=== PATIENT | female | born 1995 | race Caucasian/White ===

== ENCOUNTER → 2018-08-21 | Outpatient (CLI) | payer OTHER ==
[~2018-08-21] MED LIST: CLAR1TAB2 PO; CLEO300C2 PO; IBUP-1022 PO
== END ==
LOC: M SMT 13:05
PROVIDERS: ATTEND Advanced Practice Midwife
DX: Z31.438 Encounter for other genetic testing of female for procreative management (principal)

== ENCOUNTER → 2018-08-26 | Outpatient (CLI) | payer BC, OTHER ==
[2018-08-26 13:34] LABS: BASO % 0.5 % (0.0-1.0); EOS # 0.1 10^3/uL (0.0-0.50); EOS % 1.3 % (0.0-3.0); HEMATOCRIT 38.1 % (36.0-47.0); HEMOGLOBIN 12.4 g/dl (12.0-15.5); LYMPH # 2.7 10^3/uL (1.5-6.5); LYMPH % 31.8 % (24.0-44.0); MEAN CORPUSCULAR HEMOGLOBIN 26.5 pg (27.0-33.0); MEAN CORPUSCULAR HGB CONC 32.5 g/dl (32.0-36.5); MEAN CORPUSCULAR VOLUME 81.4 fl (80.0-96.0); MONO # 0.9 10^3/uL (0.0-0.8); MONO % 10.5 % (0.0-5.0); NEUTROPHILS # 4.7 10^3/uL (1.8-7.7); NEUTROPHILS % 55.7 % (36.0-66.0); PLATELET COUNT, AUTOMATED 265 10^3/uL (150-450); RED BLOOD COUNT 4.68 10^6/uL (4.00-5.40); WHITE BLOOD COUNT 8.5 10^3/uL (4.0-10.0)
[2018-08-26 14:30] LABS: HEPATITIS C VIRUS ABY INDEX < 0.0 INDEX (<0.8); HIV 1&2 SCREEN CENTAUR NEGATIVE (NEGATIVE); RUBELLA IgG QUALITATIVE IMMUNE (IMMUNE)
[2018-08-26 16:01] LABS: CHLAMYDIA DNA AMPLIFICATION NEGATIVE (NEGATIVE); GC DNA AMPLIFICATION NEGATIVE (NEGATIVE)
== END ==
LOC: M SMT 11:08
PROVIDERS: ATTEND Advanced Practice Midwife
DX: Z34.81 Encounter for supervision of other normal pregnancy, first trimester (principal)

== ENCOUNTER → 2018-09-09 | Outpatient (REF) | payer BC, OTHER | LOC: M LAB REF 09:56 | PROVIDERS: ATTEND Advanced Practice Midwife | DX: Z34.01 Encounter for supervision of normal first pregnancy, first trimester (principal); Z3A.00 Weeks of gestation of pregnancy not specified ==

== ENCOUNTER → 2018-09-29 | Outpatient (REF) | payer BC, OTHER | LOC: M LAB REF 12:51 | PROVIDERS: ATTEND Physician Assistant | DX: J02.9 Acute pharyngitis, unspecified (principal) ==

== ENCOUNTER → 2018-10-01 | Outpatient (CLI) | payer BC, OTHER ==
[2018-10-01 13:40] LABS: FREE T4 0.95 NG/DL (0.76-1.46); THYROID STIMULATING HORMONE 2.48 uIU/ML (0.358-3.740)
== END ==
LOC: M SMT 08:01
PROVIDERS: ATTEND Advanced Practice Midwife
DX: Z34.82 Encounter for supervision of other normal pregnancy, second trimester (principal); Z3A.00 Weeks of gestation of pregnancy not specified

== ENCOUNTER → 2018-10-15 | Outpatient (CLI) | payer OTHER ==
--- NOTE | 2018-10-15 11:21 | REP ---
Obstetric sonography: History: Supervision of for anatomy. Findings: Scanning through the gravid uterus demonstrates a viable single intrauterine gestation in a breech lie. motion is observed and heart rate is recorded at 146 beats per minute. An anterior grade 1 placenta is seen without evidence of previa or abruption. Amniotic fluid is subjectively normal. Closed cervical length is 5.5 cm, viewed transabdominally. No extrauterine abnormalities observed. No anomaly is seen. Four-chamber heart, outflow tract, and kidney visualizations are less than optimal due to position. The following additional anatomic structures are identified and felt to be sonographically unremarkable: cranium, choroid plexus, cavum, cerebellum and posterior fossa, face and profile, lungs, diaphragm, left-sided stomach, abdominal wall cord insertion, three-vessel cord, urinary bladder, spine, upper and lower extremities. Biometry chart: BPD 4.1 cm = 18 weeks 3 days Head circumference 14.8 cm = 17 weeks 6 days Abdominal circumference 13.2 cm = 18 weeks 5 days Femur length 2.9 cm = 18 weeks 6 days Humeral length 2.7 cm = 18 weeks 4 days Cerebellar diameter 1.8 cm = 17 weeks 6 days HC/AC ratio normal 1.12. Cephalic index normal 0.78. Estimated weight 253 grams, 0 pounds 8 ounces, 57th percentile for 18 weeks 3 days. Impression: Viable single intrauterine gestation at 18 weeks 3 days by today's composite sonographic criteria. ERICA by today's sonography March 15, 2019. anatomic survey is less than complete regarding heart and kidneys. Electronically Signed by Alex Echeverria MD 10/15/2018 12:30 P
== END ==
LOC: M RAD 09:31
PROVIDERS: ATTEND Advanced Practice Midwife
DX: Z34.82 Encounter for supervision of other normal pregnancy, second trimester (principal); Z3A.18 18 weeks gestation of pregnancy

== ENCOUNTER 2018-11-09 17:11 | Emergency (ER) | payer BC, OTHER ==
[~2018-11-09] VITALS: Ht 160 cm; Wt 90.0 kg
[2018-11-09] MEDS ORDERED: MULTTAB20 PO (19:54)
[2018-11-09] MEDS ORDERED: MAGN400C PO (19:54)
[2018-11-09] MEDS ORDERED: BENA25CA4 PO (19:54)
[2018-11-09] MEDS ORDERED: CLEO300C2 PO (20:05)
[2018-11-09 20:16] VITALS: BP 116/73
== END 2018-11-09 20:25 | disposition home or self-care (01) ==
LOC: M ED 17:11
DX: O99.89 Other specified diseases and conditions complicating pregnancy, childbirth and the puerperium (principal); T78.49XA Other allergy, initial encounter; Y92.9 Unspecified place or not applicable; Y93.9 Activity, unspecified; Z3A.22 22 weeks gestation of pregnancy; Z79.899 Other long term (current) drug therapy; Z88.0 Allergy status to penicillin

== ENCOUNTER → 2018-11-17 | Outpatient (CLI) | payer BC ==
[~2018-11-17] MED LIST changes: +BENA25CA4 PO; +MAGN400C PO; +MULTTAB20 PO
--- NOTE | 2018-11-17 15:12 | REP ---
Clinical: Anatomical evaluation. Comparison: 10/15/2018 . Findings: Examination demonstrates a single live intrauterine in breech presentation. motion is identified by technologist. Placenta is noted anterior and grade grade zero without evidence for placenta previa or abruption. Amniotic fluid volume is normal. Cervix measures 5.1 cm in length and appears closed. No evidence for nuchal cord. Gestational age by LMP 22 weeks 4 days with ERICA 03/19/2019 . Gestational age by current measurements 23 weeks 4 days with ERICA 03/12/2019 . FHR equals 165 beats per minute. Estimated weight 605 grams ( 76th percentile). Anatomical assessment demonstrates normal structures including cranium, choroid plexus, cavum, cerebellum/posterior fossa, facial features, lungs, four-chamber heart/ventricular outflow tracts, diaphragm, stomach, cord insertion/three-vessel cord, kidneys/bladder, spine, and extremities. Impression: Single live intrauterine in breech presentation demonstrating appropriate interval growth. Anatomical assessment is complete and normal. No gross abnormalities are identified. Electronically Signed by Agapito Bradley MD 11/17/2018 03:03 P
== END ==
LOC: M RAD 13:33
PROVIDERS: ATTEND Obstetrics & Gynecology
DX: O99.89 Other specified diseases and conditions complicating pregnancy, childbirth and the puerperium (principal); Z3A.22 22 weeks gestation of pregnancy; O32.1XX0 Maternal care for breech presentation, not applicable or unspecified

== ENCOUNTER 2018-11-27 14:36 | Emergency (ER) | payer BC, OTHER ==
[~2018-11-27] VITALS: Ht 162.6 cm; Wt 93.3 kg
[2018-11-27 14:36] VITALS: BP 128/72
[2018-11-27] MEDS ORDERED: CLIN150C14 PO (16:18)
[2018-11-27] MEDS ORDERED: CLINDAMYCIN 150 MG CAP PO ONE (16:30)
== END 2018-11-27 16:44 | disposition home or self-care (01) ==
LOC: M ED 14:36
DX: O99.89 Other specified diseases and conditions complicating pregnancy, childbirth and the puerperium (principal); L03.114 Cellulitis of left upper limb; Z88.0 Allergy status to penicillin; Z3A.24 24 weeks gestation of pregnancy

== ENCOUNTER → 2018-12-11 | Outpatient (CLI) | payer BC, OTHER ==
[~2018-12-11] MED LIST changes: +CLIN150C14 PO
[2018-12-11 13:43] LABS: BASO % 0.3 % (0.0-1.0); EOS # 0.1 10^3/uL (0.0-0.50); EOS % 1.2 % (0.0-3.0); HEMATOCRIT 30.7 % (36.0-47.0); HEMOGLOBIN 10.1 g/dl (12.0-15.5); LYMPH # 2.1 10^3/uL (1.5-6.5); MEAN CORPUSCULAR HEMOGLOBIN 28.7 pg (27.0-33.0); MEAN CORPUSCULAR HGB CONC 32.9 g/dl (32.0-36.5); MEAN CORPUSCULAR VOLUME 87.2 fl (80.0-96.0); MONO % 9.1 % (0.0-5.0); NEUTROPHILS # 8.1 10^3/uL (1.8-7.7); NEUTROPHILS % 70.7 % (36.0-66.0); PLATELET COUNT, AUTOMATED 252 10^3/uL (150-450); RED BLOOD COUNT 3.52 10^6/uL (4.00-5.40); WHITE BLOOD COUNT 11.4 10^3/uL (4.0-10.0)
== END ==
LOC: M SMT 09:00
PROVIDERS: ATTEND Advanced Practice Midwife
DX: Z34.02 Encounter for supervision of normal first pregnancy, second trimester (principal); Z3A.00 Weeks of gestation of pregnancy not specified

== ENCOUNTER 2019-01-05 15:28 | Outpatient (CLI) | payer BC, OTHER ==
[~2019-01-05] VITALS: Ht 157.5 cm; Wt 95.4 kg
[2019-01-05 15:44] VITALS: BP 126/71
[2019-01-05] MEDS ORDERED: FERR325T88 PO (15:59)
== END 2019-01-05 17:18 | disposition home or self-care (01) ==
LOC: M LDO 15:28
PROVIDERS: ATTEND Specialist
DX: O99.89 Other specified diseases and conditions complicating pregnancy, childbirth and the puerperium (principal); R07.9 Chest pain, unspecified; R06.00 Dyspnea, unspecified; Z3A.29 29 weeks gestation of pregnancy
CPT/HCPCS: G0378; G0463

== ENCOUNTER → 2019-01-13 | Outpatient (CLI) | payer BC, OTHER ==
[~2019-01-13] MED LIST changes: +FERR325T88 PO
[2019-01-13 12:19] LABS: HEMATOCRIT 31.7 % (36.0-47.0); HEMOGLOBIN 10.3 g/dl (12.0-15.5); MEAN CORPUSCULAR HEMOGLOBIN 27.3 pg (27.0-33.0); MEAN CORPUSCULAR HGB CONC 32.5 g/dl (32.0-36.5); MEAN CORPUSCULAR VOLUME 84.1 fl (80.0-96.0); PLATELET COUNT, AUTOMATED 248 10^3/uL (150-450); RED BLOOD COUNT 3.77 10^6/uL (4.00-5.40); WHITE BLOOD COUNT 9.9 10^3/uL (4.0-10.0)
[2019-01-13 12:22] LABS: ALT/SGPT 20 U/L (12-78); BILIRUBIN,TOTAL 0.2 MG/DL (0.2-1.0); CREATININE FOR GFR 0.52 MG/DL (0.55-1.30); GLOMERULAR FILTRATION RATE > 60.0 (>60); LDH LACTATE DEHYDROGENASE 120 U/L (84-246); URIC ACID 3.1 MG/DL (2.6-6.0)
[2019-01-13 13:03] LABS: TOTAL PROTEIN,RANDOM URINE 31.1 MG/DL (0.0-12.0)
== END ==
LOC: M SMT 08:49
PROVIDERS: ATTEND Advanced Practice Midwife
DX: R51 Headache (principal); R10.30 Lower abdominal pain, unspecified

== ENCOUNTER 2019-01-25 09:13 | Outpatient (CLI) | payer BC, OTHER ==
[~2019-01-25] VITALS: Ht 160 cm; Wt 94.2 kg
[2019-01-25 09:38] VITALS: BP 120/74
[2019-01-25 10:31] LABS: APPEARANCE, URINE CLEAR (CLEAR); BACTERIA, URINE AUTO 1+ (NEGATIVE); BILIRUBIN, URINE AUTO NEGATIVE (NEGATIVE); BLOOD, URINE BLOOD NEGATIVE (NEGATIVE); COLOR, URINE YELLOW (YELLOW); GLUCOSE, URINE (UA) AUTO NEGATIVE (NEGATIVE); KETONE, URINE AUTO NEGATIVE (NEGATIVE); LEUKOCYTE ESTERASE, URINE AUTO NEGATIVE (NEGATIVE); MUCUS, URINE SMALL (NEGATIVE); NITRITE, URINE AUTO NEGATIVE (NEGATIVE); PROTEIN, URINE AUTO NEGATIVE (NEGATIVE); RBC, URINE AUTO 2 /HPF (0-3); SPECIFIC GRAVITY URINE AUTO 1.013 (1.002-1.035); SQUAMOUS EPITHELIAL CELL UR AU 6 /HPF (0-6); UROBILINOGEN, URINE AUTO 0.2 mg/dL (0.0-2.0); WBC, URINE AUTO 2 /HPF (0-3)
[2019-01-25 11:05] LABS: HEMATOCRIT 32.9 % (36.0-47.0); HEMOGLOBIN 10.8 g/dl (12.0-15.5); MEAN CORPUSCULAR HEMOGLOBIN 28.1 pg (27.0-33.0); MEAN CORPUSCULAR HGB CONC 32.8 g/dl (32.0-36.5); MEAN CORPUSCULAR VOLUME 85.5 fl (80.0-96.0); PLATELET COUNT, AUTOMATED 226 10^3/uL (150-450); RED BLOOD COUNT 3.85 10^6/uL (4.00-5.40); WHITE BLOOD COUNT 9.9 10^3/uL (4.0-10.0)
[2019-01-25 11:16] LABS: INR 0.96; PROTHROMBIN TIME 12.5 SECONDS (11.8-14.0)
[2019-01-25 11:17] LABS: PARTIAL THROMBOPLASTIN TIME 29.9 SECONDS (25.0-38.4)
[2019-01-25 11:19] VITALS: BP 129/81
[2019-01-25 13:08] VITALS: BP 139/77
--- NOTE | 2019-01-25 13:46 | REP ---
REASON: Assess placenta. COMPARISON: 11/17/2018. Multiple ultrasonographic images of the gravid uterus show a single living intrauterine gestation in the cephalic presentation. Doppler interrogation of the heart shows a heart rate of 147 beats per minute. The cervix measures 5.3 cm in length and is closed. The subjected amniotic fluid volume is within normal limits. The calculated amniotic fluid index is 12.6 within expected range of 8.5-24.3. Doppler of the umbilical artery shows an AB ratio of 2.67. This is within the normal range. The placenta is anterior and not low lying. There is no placental or retroplacental abnormality. IMPRESSION: Limited OB ultrasound, as described above, is within normal limits. Electronically Signed by Jules Alexandra DO 01/25/2019 02:21 P
[2019-01-25 14:18] VITALS: BP 128/67
[2019-01-25] MEDS ORDERED: PERCOCET 5MG/325MG TAB PO ONE (14:45)
[2019-01-25 14:51] VITALS: BP 128/67
--- NOTE | 2019-01-25 18:21 | IPNPDOC ---
Text Note Date of Service The patient was seen on 01/25/19. NOTE Subjective: Patient is a 23-year-old female who is a at 32.4 weeks gest ation with an ERICA of 03/18/19 based off of her LMP and consistent with her first trimester ultrasound. Her has been complicated by costochondritis and cellulitis on arm related to bug/spider bite. She presents to L&D today with complaints of contractions that are every 2 minutes since 0400. States that the contractions and abdominal pain has gotten worse since it started. She states that it is more constant but getting intermittent spikes of pain. Reports most of her pain is lower abdomen. She denies vaginal bleeding or leaking of fluid. Reports active movement. She denies any dysuria, vaginal itching or vaginal odor. After being in department for about an hour she does report that her pain continues to be constant but reports that she is feeling less contractions. Pain is a 7/10. She denies having a fever prior to coming into L&D. She has not done anything to help with pain. Reports warm jell from ultrasound helped her pin. Medical history: costochondritis. Surgical history: none Family history: ovarian cancer and type II diabetes Social history: . Denies being a smoker. Denies history of alcohol or drug abuse. Objective: Labs, VS, and ultrasound: see below. FHR is 140, moderate variability, positive accelerations, no decelerations. Contractions: occasional. A+O x3. Respiratory: regular rate but has periods where she is breathing through pain causing increased respiration. Abdomen: gravid. Palpation is tender. Abdomen palpates soft. No upper abdominal tenderness noted with palpation. SSE: cervix appears thick and closed. Discharge is white and thin. No pooling of fluid noted. Wet prep done and is negative. SVE: closed and thick. Ate lunch and able to keep entire lunch down without issue. Assessment: IUP 32.4 weeks gestation, lower abdominal pain/pelvic pain, not in labor, Category I FHR tracing Plan: Case was reviewed with Dr. St and after all labs and ultrasound were normal his recommendation was for discharge. No placental abruption noted. Normal labs and normal ultrasound. Given 2 tabs of Percocet for pain, which patient reports did not help her pain. Script sent to pharmacy for 10 tabs. Taken out of work until Friday appointment this week. Reviewed all normal findings with patient. She is to call if abdominal pain gets worse, she has regular contractions, leaking of fluid, vaginal bleeding, or decreased movement. Reviewed access to care and danger signs to report. Discharged to home with her . VS,Fishbone, I+O VS, Fishbone, I+O Laboratory Tests 01/25/19 10:51 Red Blood Count 3.85 L, Mean Corpuscular Volume 85.5, Mean Corpuscular Hemoglobin 28.1, Mean Corpuscular Hemoglobin Concent 32.8, Red Cell Distribution Width 13.3 Item Value Date Time Prothrombin Time 12.5 SECONDS 01/25/19 1051 Prothromb Time International Ratio 0.96 01/25/19 1051 Activated Partial Thromboplast Time 29.9 SECONDS 01/25/19 1051 Fibrinogen 672 MG/DL H 01/25/19 1051 Item Value Date Time Urine Color YELLOW 01/25/191006 Urine Appearance CLEAR 01/25/191006 Urine pH 7.0 UNITS 01/25/191006 Urine Specific [place] 1.013 01/25/191006 Urine Protein NEGATIVE mg/dL 01/25/191006 Urine Glucose (UA) NEGATIVE mg/dL 01/25/191006 Urine Ketones NEGATIVE mg/dL 01/25/191006 Urine Blood NEGATIVE 01/25/191006 Urine Nitrite NEGATIVE 01/25/191006 Urine Bilirubin NEGATIVE 01/25/191006 Urine Urobilinogen 0.2 mg/dL 01/25/191006 Urine Leukocyte Esterase NEGATIVE 01/25/191006 Urine WBC (Auto) 2 /HPF 01/25/191006 Urine RBC (Auto) 2 /HPF 01/25/191006 Urine Hyaline Casts (Auto) 0 /LPF 01/25/191006 Urine Bacteria (Auto) 1+ H 01/25/191006 Urine Squamous Epithelial Cells 6 /HPF 01/25/191006 Urine Mucus (Auto) SMALL 01/25/19 1007 Vital Signs Date Time Temp Pulse Resp B/P (MAP) Pulse Ox O2 Delivery O2 Flow Rate FiO2 01/25/19 15:23 18 01/25/19 14:51 98.9 83 128/67 98 REASON: Assess placenta. COMPARISON: 11/17/2018. Multiple ultrasonographic images of the gravid uterus show a single living intrauterine gestation in the cephalic presentation. Doppler interrogation of the heart shows a heart rate of 147 beats per minute. The cervix measures 5.3 cm in length and is closed. The subjected amniotic fluid volume is within normal limits. The calculated amniotic fluid index is 12.6 within expected range of 8.5-24.3. Doppler of the umbilical artery shows an AB ratio of 2.67. This is within the normal range. The placenta is anterior and not low lying. There is no placental or retroplacental abnormality. IMPRESSION: Limited OB ultrasound, as described above, is within normal limits. Electronically Signed by Jules Alexandra DO 01/25/2019 02:21 P VALENTE FAUSTIN CNM Jan 25, 2019 18:21
== END 2019-01-25 15:50 | disposition home or self-care (01) ==
LOC: M LDO 09:13
PROVIDERS: ATTEND Advanced Practice Midwife
DX: O47.03 False labor before 37 completed weeks of gestation, third trimester (principal); Z3A.32 32 weeks gestation of pregnancy; Z87.2 Personal history of diseases of the skin and subcutaneous tissue
CPT/HCPCS: 36415; 59025; 76815; 76820; 81001; 85027; 85384; 85460; 85610; 85730; 87070; G0378; G0463

== ENCOUNTER 2019-02-15 18:36 | Outpatient (CLI) | payer BC, OTHER ==
[~2019-02-15] VITALS: Ht 157.5 cm; Wt 97.9 kg
[2019-02-15 18:49] VITALS: BP 121/67
--- NOTE | 2019-02-15 19:43 | IPN ---
DATE: 02/15/2019 Mariela is a 23-year-old 1, para 0 at 35-4/7 weeks, estimated date of confinement (EDC) of 03/18/2019 based on last menstrual period and confirmed by first trimester ultrasound. She presents to labor and delivery today with report of decreased movement. She denies vaginal bleeding, leakage of fluid and painful contractions. care initiated at [facility] in the first trimester course has been uncomplicated. OBSTETRICAL HISTORY: Primigravid. OBSTETRIC LABORATORY: O+, antibody screen negative, rubella immune, VDRL nonreactive. Urine culture with no growth. Hepatitis B surface antigen negative, human immunodeficiency virus (HIV) negative. Hepatitis C antibody nonreactive. Gonorrhea and chlamydia negative. Panorama testing low risk for aneuploidy female fetus. Gestational diabetic screening normal at 100 grams. Her past medical history. Noncontributory. SURGERIES: None. FAMILY HISTORY: Type 2 diabetes. Ovarian cancer. Breast cancer and rectal cancer. SOCIAL HISTORY: The patient is . Her is at bedside. She is a nonsmoker. Denies alcohol and drug use. No history of any sexually transmitted infections and denies history of abuse physical, sexual and emotional. ALLERGIES: PENICILLIN. CURRENT MEDICATIONS: vitamins OBJECTIVE: Temperature 92, pulse 91, respirations 18, blood pressure (BP) 121/67. heart rate 150 with moderate variability, positive accelerations and negative decelerations, audible movement noted at bedside. No pattern of contractions. Sterile vaginal exam deferred. ASSESSMENT: Uterine at 35-4/7 weeks. heart rate category one. PLAN: Be sure the patient is reassured. I did review signs and symptoms of labor, movement, counts and danger signs I reviewed access to care. The patient is scheduled for appointment on Saturday 02/17. She is instructed to keep that appointment and I will be discharging the patient home. She and her have had all their questions answered and agree with this plan.
== END 2019-02-15 19:45 | disposition home or self-care (01) ==
LOC: M LDO 18:36
PROVIDERS: ATTEND Advanced Practice Midwife
DX: O36.8130 Decreased fetal movements, third trimester, not applicable or unspecified (principal); Z88.0 Allergy status to penicillin; Z3A.35 35 weeks gestation of pregnancy
CPT/HCPCS: 59025; G0378; G0463

== ENCOUNTER → 2019-02-17 | Outpatient (REF) | payer BC, OTHER | LOC: M LAB REF 12:57 | PROVIDERS: ATTEND Advanced Practice Midwife | DX: Z34.83 Encounter for supervision of other normal pregnancy, third trimester (principal) ==

== ENCOUNTER → 2019-02-25 | Outpatient (CLI) | payer BC, OTHER | LOC: M SMT 13:29 | PROVIDERS: ATTEND Advanced Practice Midwife | DX: Z34.83 Encounter for supervision of other normal pregnancy, third trimester (principal); Z3A.00 Weeks of gestation of pregnancy not specified ==

== ENCOUNTER 2019-03-07 08:06 | Outpatient (CLI) | payer BC, OTHER ==
[~2019-03-07] VITALS: Ht 157.5 cm; Wt 95.4 kg
[2019-03-07 08:21] VITALS: BP 120/75
== END 2019-03-07 09:40 | disposition home or self-care (01) ==
LOC: M LDO 08:06
PROVIDERS: ATTEND Obstetrics & Gynecology
DX: O47.1 False labor at or after 37 completed weeks of gestation (principal); Z3A.38 38 weeks gestation of pregnancy
CPT/HCPCS: 59025; G0378; G0463

== ENCOUNTER 2019-03-08 06:50 | Outpatient (CLI) | payer BC, OTHER ==
[~2019-03-08] VITALS: Ht 157.5 cm; Wt 95.1 kg
[2019-03-08 07:15] VITALS: BP 124/79
[2019-03-08 07:56] VITALS: BP 131/80
[2019-03-08 09:04] VITALS: BP 120/83
[2019-03-08 10:32] VITALS: BP 117/76
[2019-03-08 12:29] VITALS: BP 134/89
--- NOTE | 2019-03-08 12:43 | IPNPDOC ---
Text Note Date of Service The patient was seen on 03/08/19. NOTE Subjective: Patient is a 24-year-old female who is a at 38.4 weeks gestation with an ERICA of 03/18/2019 based off of her LMP and consistent with her first trimester ultrasound. Her has essentially been uncomplicated. She presents to L&D with complaints of regular painful contractions that started at midnight last night. She reports scant amount of bloody show. She denies any leaking of fluid. She reports active movement. Medical history: no current problems Surgical history: eye surgery Family history: breast cancer, rectal cancer, diabetes, ovarian cancer. Social history: . No history of abuse. Patient is a former smoker. Denies any use of alcohol or drug use during . Objective: FHR is 145, moderate variability, positive accelerations, no decelerations. contractions every 1.5-5 minutes. SVE 1/80/-1, soft, anterior, scant dark show. After 4.5 hours she had no change in her cervix. Her cervix did change from being seen this weekend by Dr. Washington. she was 1 cm dilated and 25% effaced and posterior. A+O x3. Respiratory: regular rate with no use of accessory muscles. She does increase her respiratory rate during contractions. Abdomen: soft and non tender to palpation. Palpation reveals mild contractions. Lower extremities: generalized edema without pitting. Assessment: IUP at 38.4 weeks, latent labor Plan: Patient discharged to home with labor precautions. Reviewed access to care, kick count, labor signs, and danger signs to report. Reviewed labor latent and comfort measures. VS,Fishbone, I+O VS, Fishbone, I+O Vital Signs Date Time Temp Pulse Resp B/P (MAP) Pulse Ox O2 Delivery O2 Flow Rate FiO2 03/08/19 10:32 80 18 117/76 (90) 03/08/19 07:15 98.7 VALENTE FAUSTIN CNM Mar 08, 2019 12:43
== END 2019-03-08 12:49 | disposition home or self-care (01) ==
LOC: M LDO 06:50
PROVIDERS: ATTEND Obstetrics & Gynecology
DX: O26.853 Spotting complicating pregnancy, third trimester (principal); O47.1 False labor at or after 37 completed weeks of gestation; Z3A.38 38 weeks gestation of pregnancy
CPT/HCPCS: 59025; G0378; G0463

== ENCOUNTER 2019-03-09 04:50 | Inpatient (IN) | payer BC, OTHER ==
[~2019-03-09] VITALS: Ht 160 cm; Wt 108.0 kg
[2019-03-09] VITALS (46 sets, daily range): BP systolic 105–162; BP diastolic 55–107
[2019-03-09] MEDS ORDERED: BUTORPHANOL 2 MG/ML INJ (J0595) As Ordered ONE (05:25)
[2019-03-09] MEDS ORDERED: PROMETHAZINE INJ 25 MG/ML VIAL (J2550) As Ordered ONE (05:25)
[2019-03-09 05:29] LABS: HEMATOCRIT 36.3 % (36.0-47.0); MEAN CORPUSCULAR HEMOGLOBIN 27.8 pg (27.0-33.0); MEAN CORPUSCULAR HGB CONC 33.1 g/dl (32.0-36.5); PLATELET COUNT, AUTOMATED 229 10^3/uL (150-450); RED BLOOD COUNT 4.32 10^6/uL (4.00-5.40); WHITE BLOOD COUNT 19.3 10^3/uL (4.0-10.0)
[2019-03-09] MEDS ORDERED: PROMETHAZINE INJ 25 MG/ML VIAL (J2550) IV ONE (05:30)
[2019-03-09] MEDS ORDERED: BUTORPHANOL 2 MG/ML INJ (J0595) IV ONE (05:30)
[2019-03-09] MEDS ORDERED: LACTATED RINGER'S 1000 ML IV STA (06:23)
--- NOTE | 2019-03-09 06:31 | HPEPDOC ---
Obstetrical History & Physical General Date of Admission Mar 09, 2019 at 05:07 Primary Care Physician: VALENTE FAUSTIN CNM History of Present Illness Patient is a 24-year-old female who is a at 38.5 weeks gestation who presets to L&D in active labor. She was seen Friday for labor and her cervix was only 1 cm 25% effaced. She was seen yesterday morning and her cervix was 1/80/-1 and she presents today in labor with appropriate cervical change. Her has been uncomplicated. Chief Complaint: Active Labor Information Provided By: Patient Age: 24 : 1 Term: 0 Pre-term: 0 Abortions: 0 Livin Care Care: Good Care Dating Final EDC: Mar 18, 2019 Final EDC by: LMP EGA at Admission: 38.5 Antepartum Course Height (inches): 63 Pre- weight (lbs.): 204 Admission Weight (lbs.): 216 Change in Weight (lbs.): 12 Past Medical History Past Obstetrical History : Past Obstetrical History: Primgravida TECHNICAL REP History: No pertinent history Past Medical History Medical History None Surgical History: Other (eye surgery) Family History Significant Family History: Cancer (breast, rectal. ovarian), Diabetes Social History Marital Status: Family situation: Spouse/partner home Psychosocial History: No pertinent psych hx * Smoker: former Smoker Alcohol: Denies Drugs: denies Abuse Violence Screening Have you been hit/kicked/slapp: No Have you been sexually assault: No Allergies Coded Allergies: Penicillins (Verified Allergy, Intermediate, HIVES, 03/09/19) hives Medications Scheduled No122/Iron/Folic Acid ( Multi Tablet) 1 Each Tablet, 1 TAB PO DAILY Physical Examination Physical Examination GENERAL: Alert and oriented times three. BREAST: . ABDOMEN: Gravid and non-tender to touch. FETUS: Is vertex (VTX) by sterile vaginal examination (SVE), fetus is vertex (VTX) by [place]. HEART RATE: Regular rate and rhythm. LUNGS: Clear to auscultation (CTA). EXTREMITIES: No edema. No clonus. Deep tendon reflexes (DTRs) + 2. Vital Signs/I&O Vital Signs Date Time Temp Pulse Resp B/P (MAP) Pulse Ox O2 Delivery O2 Flow Rate FiO2 03/09/19 06:16 79 125/71 (89) 03/09/19 05:46 98.8 03/09/19 05:40 22 I&O- Last 24 Hours up to 6 AM 03/09/19 06:00 Intake Total 200 ml Balance 200 ml Laboratory Data 24H LABS Laboratory Tests 2 03/09/19 05:08: Serology Scanned Report Hepatitis B Testing 03/09/19 05:22: Nucleated Red Blood Cells % (auto) 0.0 CBC/BMP Laboratory Tests 03/09/19 05:22 Red Blood Count 4.32, Mean Corpuscular Volume 84.0, Mean Corpuscular Hemoglobin 27.8, Mean Corpuscular Hemoglobin Concent 33.1, Red Cell Distribution Width 12.9 Urine Culture: No Growth Pertinent Laboratoy Data Blood Type: O+ RBC Antibody Screen: Negative HIV: Negative Hepatitis B: Negative Hepatitis C: Negative Rapid Plasma Reagin: Nonreactive Rubella: Immune Chlamydia/Gonorrhea: Negative Group B Streptococcus: Negative Glucose Tolerance Test: 100 Vaginal Examination Dilation: 3 cm Effacement: 80% Station: -1 Cervical Consistency: Soft Cervical Position: Anterior Presentation: Cephalic presentation Position: Vertex (occiput) Assessment Heart Rate (FHR): 140 Variability: Moderate Accelerations: Positive Decelerations: None Tocometer Contractions: Yes Frequency: regular Assessment/Plan Assessment IUP at 38.5 weeks active labor GBS negative Category I FHR tracing Plan Admit to L&D. OOB ad sharlene. Diet: clears. Group B Streptococcus (GBS) negative. Labs and intravenous (IV) per unit protocol. Lactated Ringers (LR): Bolus 800 mL, then at 125 mL/hr. Anesthesia consult per patient's request. Patient desires IV pain medication until she is able to get an epidural. Stadol and Phenergan ordered via IV. Anticipate cervical change and normal spontaneous delivery (). C-S as appropriate. VALENTE FAUSTIN CNM Mar 09, 2019 06:31
--- NOTE | 2019-03-09 09:22 | IPNPDOC ---
Text Note Date of Service The patient was seen on 03/09/19. NOTE Subjective: 24 yo , contractions with back pain. Uncomfortable, considering epidural Objective: SVE: 3-4 cm/80%/0 station FHR: 150 bpm, moderate variability, accels, no decels, cat 1 tracing Assessment/Plan: at 38.5 weeks gestation in active labor -reassuring status -GBS-, no antibiotics -anesthesia consult as needed -anticipate VS,Fishbone, I+O VS, Fishbone, I+O Laboratory Tests 03/09/19 05:22 Red Blood Count 4.32, Mean Corpuscular Volume 84.0, Mean Corpuscular Hemoglobin 27.8, Mean Corpuscular Hemoglobin Concent 33.1, Red Cell Distribution Width 12.9 Vital Signs Date Time Temp Pulse Resp B/P (MAP) Pulse Ox O2 Delivery O2 Flow Rate FiO2 03/09/19 08:10 71 18 132/88 (103) 03/09/19 07:09 98.6 I&O- Last 24 Hours up to 6 AM 03/09/19 06:00 Intake Total 200 ml Balance 200 ml GME ATTESTATION GME ATTESTATION My faculty preceptor for this patient encounter was physically present during t he encounter and was fully available. All aspects of the patient interview, examination, medical decision making process, and medical care plan development were reviewed and approved by the faculty preceptor. The faculty preceptor is aware and concurs with the plan as stated in the body of this note and will attest to such by his/her cosignature. SILVIO MOY DO Mar 09, 2019 09:22
[2019-03-09] MEDS ORDERED: FENTANYL 2MCG/ML ROPIVACAINE 0.2% IN 0.9% NACL 100ML IVBAG As Ordered ONE (09:40)
[2019-03-09] MEDS: FENTANYL/ROPIVACAINE/NACL BAG 100 ML EPIDURAL SCH ×2 (10:25→18:19)
[2019-03-09] MEDS ORDERED: LACTATED RINGER'S 1000 ML IV PRN (11:00)
[2019-03-09] MEDS ORDERED: ONDANSETRON 4MG/2ML VIAL (J2405) IV PRN ×2 (11:00→20:15)
[2019-03-09] MEDS ORDERED: NALOXONE INJ 0.4 MG/1 ML VIAL (J2310) IV PRN (11:00)
[2019-03-09] MEDS ORDERED: EPIDURAL/PCA KEYS XX PRN (11:00)
[2019-03-09] MEDS ORDERED: REFRIGERATOR IV KEYS XX PRN (11:00)
[2019-03-09] MEDS ORDERED: diphenhydrAMINE INJ 50MG/ML VIAL (J1200) IV PRN (11:00)
[2019-03-09] MEDS ORDERED: EPIDURAL COMMENT XX SCH (11:00)
[2019-03-09] MEDS ORDERED: ePHEDrine SULFATE 25 MG/5 ML(5MG/ML) SYRINGE IV PRN (11:00)
--- NOTE | 2019-03-09 16:02 | IPNPDOC ---
Text Note Date of Service The patient was seen on 03/09/19. NOTE S: Patient comfortable with epidural, no urge to push. O: Vitals stable SVE: 100/0 FHR: 145 bpm, moderate variability, accels, no decels, cat 1 tracing TOCO: CTX q2-6 min A/P: 24 yo at 39.5 EGA in active labor - status reassuring -comfortable with epidural -anticipate VS,Fishbone, I+O VS, Fishbone, I+O Laboratory Tests 03/09/19 05:22 Red Blood Count 4.32, Mean Corpuscular Volume 84.0, Mean Corpuscular Hemoglobin 27.8, Mean Corpuscular Hemoglobin Concent 33.1, Red Cell Distribution Width 12.9 Vital Signs Date Time Temp Pulse Resp B/P (MAP) Pulse Ox O2 Delivery O2 Flow Rate FiO2 03/09/19 15:15 98.9 78 16 126/67 (86) I&O- Last 24 Hours up to 6 AM 03/09/19 06:00 Intake Total 200 ml Balance 200 ml GME ATTESTATION GME ATTESTATION My faculty preceptor for this patient encounter was physically present during the encounter and was fully available. All aspects of the patient interview, examination, medical decision making process, and medical care plan development were reviewed and approved by the faculty preceptor. The faculty preceptor is aware and concurs with the plan as stated in the body of this note and will attest to such by his/her cosignature. SILVIO MOY DO Mar 09, 2019 16:02
[2019-03-09] MEDS ORDERED: OXYTOCIN 30 UNITS IN 0.9% NaCl 500ML IV BAG (J2590) As Ordered ONE (19:01)
[2019-03-09] MEDS ORDERED: MEASLES,MUMPS,RUBELLA VACCINE INJ (MMR-II) (90707) SC SCH (20:15)
[2019-03-09] MEDS ORDERED: PROMETHAZINE 25 MG TAB PO PRN (20:15)
[2019-03-09] MEDS ORDERED: IBUPROFEN 600 MG TAB PO PRN (20:15)
[2019-03-09] MEDS ORDERED: RHOGAM 300 MCG (1500 IU) INJ (J2790) IM SCH (20:15)
--- NOTE | 2019-03-09 20:26 | DN ---
DATE OF DELIVERY: 03/09/2019 PREDELIVERY DIAGNOSIS: A 39-week 5-day gestation. POSTDELIVERY DIAGNOSIS: Delivered. PROCEDURE: Spontaneous vaginal delivery. RESIDENT: Laura Chandler D.O. PGY3 ATTENDING PHYSICIAN: Jd Washington D.O., FACOG ANESTHESIA: Epidural. ESTIMATED BLOOD LOSS: 400 mL. FINDINGS: Female infant weighing 7 pounds 8 ounces or 3400 grams, scores 9 and 9. DELIVERY SUMMARY: After a short second stage, the patient spontaneously delivered a 7-pounds 8-ounce female weighing 3400 grams under epidural anesthesia at 1941 hours. The infant delivered left occiput anterior and restituted to right occiput transverse. There was no nuchal cord. The shoulders delivered with ease followed by the corpus. The cried spontaneously and was handed to the mother. scores were 9 and 9. The cord was doubly clamped and cut by the father of baby. The placenta was delivered spontaneously at 1946 hours by Rivers mechanism and appeared to be intact. A 3-vessel cord was noted. The patient received intravenous (IV) Pitocin immediately after delivery of placenta. The patient had a first-degree perineal tear and a left vaginal wall abrasion that were both repaired with 3-0 Rapide in the usual fashion. Sponge counts were correct. The parents have named their baby Tianna Rankin. My faculty preceptor for this patient encounter was physically present during the encounter and was fully available. All aspects of the patient interview, examination, medical decision making process, and medical care plan development were reviewed and approved by the faculty preceptor. The faculty preceptor is aware and concurs with the plan as stated in the body of this note and will attest to such by his/her co-signature. Attest to the above documentation DO MOJGAN Lynch
[2019-03-09] MEDS ORDERED: LR 1,000 ML IV SCH (21:00)
[2019-03-09] MEDS ORDERED: OXYTOCIN DRIP 30 UNITS in APPROPRIATE DILUENT 1 EA IV SCH (21:00)
[2019-03-09] MEDS ORDERED: ACETAMINOPHEN TAB 650MG DOSE (2X325MG) PO PRN (21:00)
[2019-03-09] MEDS: IBUPROFEN 800 MG TAB PO PRN (21:07)
[2019-03-09] MEDS: ACETAMINOPHEN 500 MG TAB PO PRN (21:08)
[2019-03-09] MEDS: DIBUCAINE 1% OINTMENT 30GM TOP PRN (23:25)
[2019-03-09] MEDS: DOCUSATE SODIUM 100 MG CAP PO PRN (23:25)
[2019-03-10 05:56] VITALS: BP 103/59
[2019-03-10] MEDS: IBUPROFEN 800 MG TAB PO PRN ×2 (06:32→17:08)
[2019-03-10] MEDS: ACETAMINOPHEN 500 MG TAB PO PRN ×2 (06:33→20:32)
[2019-03-10] MEDS: PRENATAL VITAMINS CHEWABLE TABLET PO SCH (09:28)
[2019-03-10 18:11] VITALS: BP 100/57
[2019-03-10 18:30] VITALS: BP 130/92
[2019-03-10] MEDS: DOCUSATE SODIUM 100 MG CAP PO PRN (20:32)
[2019-03-10] MEDS: DIBUCAINE 1% OINTMENT 30GM TOP PRN (20:43)
[2019-03-11 05:34] VITALS: BP 134/81
[2019-03-11] MEDS ORDERED: INFLUENZA QUADRIVALENT PF VACCINE 0.5ML SYRINGE (90686) IM ONE (09:00)
[2019-03-11] MEDS: PRENATAL VITAMINS CHEWABLE TABLET PO SCH (09:10)
== END 2019-03-11 11:09 | disposition home or self-care (01) | DRG 560 ==
LOC: M LDO 04:50 → M LDI 05:07 → M OBS 22:21
PROVIDERS: ADMIT Advanced Practice Midwife; ATTEND Obstetrics & Gynecology
PROC: 10E0XZZ Delivery of Products of Conception, External Approach (ICD-10-PCS; principal; 2019-03-09)
PROC: 0HQ9XZZ Repair Perineum Skin, External Approach (ICD-10-PCS; 2019-03-09)
DX: O70.0 First degree perineal laceration during delivery (principal); Z3A.38 38 weeks gestation of pregnancy; Z37.0 Single live birth

== ENCOUNTER → 2019-08-04 | Outpatient (REF) | payer OTHER, BC | LOC: M SFHCWAGY 19:14 | PROVIDERS: ATTEND Advanced Practice Midwife | DX: Z12.4 Encounter for screening for malignant neoplasm of cervix (principal); R87.620 Atypical squamous cells of undetermined significance on cytologic smear of vagina (ASC-US) | CPT/HCPCS: 87624; G0123 ==

== ENCOUNTER → 2019-11-03 | Outpatient (REF) | payer BC ==
[2019-11-03 15:40] LABS: HEMATOCRIT 39.5 % (36.0-47.0); HEMOGLOBIN 12.6 g/dl (12.0-15.5); MEAN CORPUSCULAR HGB CONC 31.9 g/dl (32.0-36.5); MEAN CORPUSCULAR VOLUME 84.6 fl (80.0-96.0); PLATELET COUNT, AUTOMATED 323 10^3/uL (150-450); RED BLOOD COUNT 4.67 10^6/uL (4.00-5.40); WHITE BLOOD COUNT 9.6 10^3/uL (4.0-10.0)
[2019-11-03 16:11] LABS: HCG, SERUM QUANTITATIVE 505 MIU/ML
[2019-11-03 16:19] LABS: FOLATE > 24.0 NG/ML (>5.4)
== END ==
LOC: M PLALAB 14:04
PROVIDERS: ATTEND Advanced Practice Midwife
DX: R42 Dizziness and giddiness (principal); Z34.90 Encounter for supervision of normal pregnancy, unspecified, unspecified trimester

== ENCOUNTER → 2019-12-08 | Outpatient (REF) | payer BC ==
[~2019-12-08] MED LIST changes: +ACET-683 PO; -CLIN150C14 PO; +CLIN150C15 PO; +IRON1TAB2 PO; +NEOM1SOL19 AS; +ONDA4TAB6 PO; +SERT50TA29 PO; +ZOFR4TAB16 PO
[2019-12-08 14:01] LABS: HEMATOCRIT 38.2 % (36.0-47.0); HEMOGLOBIN 12.3 g/dl (12.0-15.5); MEAN CORPUSCULAR HEMOGLOBIN 26.8 pg (27.0-33.0); MEAN CORPUSCULAR HGB CONC 32.2 g/dl (32.0-36.5); MEAN CORPUSCULAR VOLUME 83.2 fl (80.0-96.0); PLATELET COUNT, AUTOMATED 307 10^3/uL (150-450); RED BLOOD COUNT 4.59 10^6/uL (4.00-5.40); WHITE BLOOD COUNT 12.5 10^3/uL (4.0-10.0)
[2019-12-08 15:14] LABS: HEPATITIS C VIRUS ABY INDEX 0.2 INDEX (<0.8); HIV 1&2 SCREEN CENTAUR NEGATIVE (NEGATIVE)
[2019-12-08 15:55] LABS: CHLAMYDIA DNA AMPLIFICATION NEGATIVE (NEGATIVE); GC DNA AMPLIFICATION NEGATIVE (NEGATIVE)
== END ==
LOC: M PLALAB 11:50
PROVIDERS: ATTEND Advanced Practice Midwife
DX: O99.341 Other mental disorders complicating pregnancy, first trimester (principal)

== ENCOUNTER 2019-12-20 10:21 | Emergency (ER) | payer BC ==
[~2019-12-20] VITALS: Ht 162.6 cm; Wt 87.0 kg
[~2019-12-20 10:21] MED LIST changes: -ACET-683 PO; +CLIN150C14 PO; -CLIN150C15 PO; -IRON1TAB2 PO; -NEOM1SOL19 AS; -ONDA4TAB6 PO; -SERT50TA29 PO; -ZOFR4TAB16 PO
[2019-12-20] MEDS ORDERED: SERT50TA29 (10:28)
[2019-12-20] MEDS ORDERED: NS 1,000 ML IV ONE (11:00)
[2019-12-20] MEDS ORDERED: ONDANSETRON 4MG/2ML VIAL IV ONE (11:00)
[2019-12-20 11:06] LABS: BASO % 0.2 % (0.0-1.0); EOS # 0.1 10^3/uL (0.0-0.5); EOS % 1.1 % (0.0-3.0); HEMATOCRIT 37.4 % (36.0-47.0); HEMOGLOBIN 12.2 g/dl (12.0-15.5); LYMPH % 31.9 % (24.0-44.0); MEAN CORPUSCULAR HEMOGLOBIN 26.8 pg (27.0-33.0); MEAN CORPUSCULAR HGB CONC 32.6 g/dl (32.0-36.5); MONO # 0.9 10^3/uL (0.0-0.8); MONO % 9.8 % (0.0-5.0); NEUTROPHILS # 5.3 10^3/uL (1.5-8.5); NEUTROPHILS % 56.7 % (36.0-66.0); PLATELET COUNT, AUTOMATED 286 10^3/uL (150-450); RED BLOOD COUNT 4.56 10^6/uL (4.00-5.40); WHITE BLOOD COUNT 9.3 10^3/uL (4.0-10.0)
[2019-12-20 11:09] LABS: AMORPHOUS SEDIMENT LARGE (NEGATIVE); APPEARANCE, URINE CLOUDY (CLEAR); BACTERIA, URINE AUTO NEGATIVE (NEGATIVE); BILIRUBIN, URINE AUTO NEGATIVE (NEGATIVE); BLOOD, URINE BLOOD NEGATIVE (NEGATIVE); COLOR, URINE YELLOW (YELLOW); GLUCOSE, URINE (UA) AUTO NEGATIVE (NEGATIVE); KETONE, URINE AUTO NEGATIVE (NEGATIVE); LEUKOCYTE ESTERASE, URINE AUTO NEGATIVE (NEGATIVE); MUCUS, URINE SMALL (NEGATIVE); NITRITE, URINE AUTO NEGATIVE (NEGATIVE); PROTEIN, URINE AUTO NEGATIVE (NEGATIVE); RBC, URINE AUTO 1 /HPF (0-3); SPECIFIC GRAVITY URINE AUTO 1.012 (1.002-1.035); SQUAMOUS EPITHELIAL CELL UR AU 0 /HPF (0-6); UROBILINOGEN, URINE AUTO 0.2 mg/dL (0.0-2.0); WBC, URINE AUTO 0 /HPF (0-3)
[2019-12-20 11:28] LABS: AMPHETAMINES LEVEL URINE NEGATIVE (NEGATIVE); BARBITURATES URINE NEGATIVE (NEGATIVE); BENZODIAZEPINES URINE NEGATIVE (NEGATIVE); CANNABINOIDS URINE NEGATIVE (NEGATIVE); COCAINE METABOLITE URINE NEGATIVE (NEGATIVE); METHADONE URINE NEGATIVE (NEGATIVE); OPIATES URINE NEGATIVE (NEGATIVE); PHENCYCLIDINE URINE NEGATIVE (NEGATIVE)
[2019-12-20 11:47] LABS: ALBUMIN 3.4 GM/DL (3.2-5.2); ALT/SGPT 15 U/L (12-78); BILIRUBIN,DIRECT 0.1 MG/DL (0.0-0.2); BILIRUBIN,TOTAL 0.2 MG/DL (0.2-1.0); BLOOD UREA NITROGEN 8 MG/DL (7-18); CALCIUM LEVEL 9.4 MG/DL (8.5-10.1); CARBON DIOXIDE LEVEL 24 MEQ/L (21-32); CHLORIDE LEVEL 106 MEQ/L (98-107); CREATININE FOR GFR 0.49 MG/DL (0.55-1.30); GLOMERULAR FILTRATION RATE > 60.0 (>60); GLUCOSE, FASTING 81 MG/DL (70-100); HCG, SERUM QUANTITATIVE 71495 MIU/ML; LIPASE 91 U/L (73-393); POTASSIUM SERUM 4.2 MEQ/L (3.5-5.1); SODIUM LEVEL 137 MEQ/L (136-145); TOTAL PROTEIN 7.4 GM/DL (6.4-8.2)
[2019-12-20 14:30] VITALS: BP 102/69
[2019-12-20] MEDS ORDERED: ONDA4TAB6 PO (19:06)
[2019-12-21] MEDS ORDERED: NEOM1SOL19 AS (17:21)
== END 2019-12-20 14:32 | disposition home or self-care (01) ==
LOC: M ED 10:21
DX: O21.9 Vomiting of pregnancy, unspecified (principal); O99.89 Other specified diseases and conditions complicating pregnancy, childbirth and the puerperium; H61.23 Impacted cerumen, bilateral; Z3A.11 11 weeks gestation of pregnancy; O99.341 Other mental disorders complicating pregnancy, first trimester; F41.9 Anxiety disorder, unspecified; Z88.0 Allergy status to penicillin
CPT/HCPCS: 36415; 69210; 80048; 80076; 80307; 81001; 83690; 84702; 85025; 96361; 96374; 99284; J2405

== ENCOUNTER 2019-12-21 16:22 | Emergency (ER) | payer BC ==
[~2019-12-21] VITALS: Ht 162.6 cm; Wt 88.3 kg
[2019-12-21 16:22] VITALS: BP 110/60
[~2019-12-21 16:22] MED LIST changes: +ONDA4TAB6 PO; +SERT50TA29
[2019-12-21] MEDS ORDERED: CORTISPORIN OTIC SOLN 10 ML BTL AS STA (17:16)
[2019-12-21] MEDS ORDERED: NEOM1SOL19 AS (17:21)
== END 2019-12-21 17:28 | disposition home or self-care (01) ==
LOC: M ED 17:20
DX: H92.01 Otalgia, right ear (principal); Z88.0 Allergy status to penicillin

== ENCOUNTER → 2020-02-08 | Outpatient (CLI) | payer BC ==
[~2020-02-08] MED LIST changes: +ACET-683 PO; +IRON1TAB2 PO; +NEOM1SOL19 AS; +ZOFR4TAB16 PO
--- NOTE | 2020-03-17 09:34 | REP ---
OBSTETRIC ULTRASOUND FOR ANATOMY Delay in reporting results from malfunction of the hospital computer system as a result of a malware attack. FINDINGS: There is a single intrauterine gestation in a transverse lie with the head to the maternal right. Placenta is posterior, grade 0 without previa or abruptio. The inferior margin of the placenta is 3 cm from the internal cervical os. heart rate is 163 beats per minute. Amniotic fluid volume subjectively is normal. Cervix measures 3.8 cm length. The following anatomic structures are identified and are unremarkable: Cisterna magna, cavum septum pellucidum, thalami, spine, stomach, kidneys, bladder, three-vessel cord, cord insertion, upper and lower extremities, and face and upper lip. Suboptimally demonstrated because of the position are the four chamber view of heart and right and left cardiac outflow tracts. The composite gestational age by todays ultrasound is 18 weeks 3 days. Estimated weight is 230 grams. This is the 41st percentile. Follow-up study of the four chamber view of the heart and cardiac outflow tracts might be considered. MOJGAN
== END ==
LOC: M WHC 09:20
PROVIDERS: ATTEND Advanced Practice Midwife
DX: Z34.82 Encounter for supervision of other normal pregnancy, second trimester (principal)

== ENCOUNTER → 2020-03-07 | Outpatient (CLI) | payer BC ==
--- NOTE | 2020-03-24 11:04 | REP ---
FOLLOW-UP OBSTETRICAL ULTRASOUND COMPARISON: 02/08/2020. CLINICAL: Follow-up anatomical assessment. TECHNIQUE: Transabdominal obstetrical ultrasound with color Doppler evaluation. FINDINGS: Ultrasound examination demonstrates a single live intrauterine in breech presentation. motion was identified by the technologist. Placenta is noted left laterally and grade 0 without placenta previa or abruption. Amniotic fluid volume is normal. Cervix measures 5.7 cm in length and appears closed. No evidence for nuchal cord. Gestational age by current measurements 23 weeks 1 day with estimated date of delivery 07/03/2020. Estimated weight 554 grams (55th percentile). heart rate equals 160 beats per minute. Anatomical assessment demonstrates normal cranium, ventricles, choroid plexus, posterior fossa, cerebellum, facial profile, lungs, four chamber heart/ventricular outflow tracts, diaphragm, stomach, kidneys, bladder, three- vessel cord/cord insertion. IMPRESSION: * Single live intrauterine in breech presentation demonstrating appropriate estimated weight and growth. * In conjunction with prior examination, anatomical assessment is complete and normal. MTDD
== END ==
LOC: M RAD 15:56
PROVIDERS: ATTEND Advanced Practice Midwife
DX: O32.1XX0 Maternal care for breech presentation, not applicable or unspecified (principal); Z3A.23 23 weeks gestation of pregnancy

== ENCOUNTER 2020-03-14 12:19 | Outpatient (CLI) | payer BC ==
[~2020-03-14] VITALS: Ht 162.6 cm; Wt 90.1 kg
[~2020-03-14 12:19] MED LIST changes: -ACET-683 PO; -IRON1TAB2 PO; -ZOFR4TAB16 PO
[2020-03-14 12:41] VITALS: BP 110/63
[2020-03-14] MEDS ORDERED: MORPHINE 4 MG/ML 1ML VIAL/SYRINGE (J2270) IV ONE (13:15)
[2020-03-14] MEDS ORDERED: PROMETHAZINE INJ 25 MG/ML VIAL (J2550) IV ONE (13:15)
[2020-03-14] MEDS ORDERED: LR 1,000 ML IV ONE (13:15)
[2020-03-14] MEDS ORDERED: LR 1,000 ML IV SCH (14:00)
[2020-03-14 14:02] VITALS: BP 106/62
[2020-03-14] MEDS ORDERED: ACET-683 PO (14:20)
--- NOTE | 2020-03-14 15:29 | IPNPDOC ---
Obstetrical Progress Note Date of Service Mar 14, 2020 Subjective 25-year-old 2 para 1 presents at 23 weeks with nausea vomiting and headache unrelieved by Tylenol. She reports movement and denies any vaginal bleeding or leakage of fluid or contractions Objective: Vital signs are stable afebrile tracing appropriate for gestational Gen. appearance: Well-appearing no acute distress Abdomen: Gravid nontender Patient provided with intravenous fluids and 12.5 mg of Phenergan and 4 mg of morphine which resolved her headache and she is able to tolerate by mouth. Assessment: 25-year-old 2 para 1 at 23 weeks with headache improved with IV hydration and Phenergan and morphine Reassuring status Home with labor precaution Prescription for Fioricet Follow-up at next OB appointment Objective Vital Signs Date Time Temp Pulse Resp B/P (MAP) Pulse Ox O2 Delivery O2 Flow Rate FiO2 03/14/20 14:02 83 106/62 (77) 03/14/20 13:55 16 Room Air 03/14/20 12:41 98.6 Assessment and Plan Age: 25 : 2 Livin Status: Reassuring ANNETTE BOUDREAUX MD. Mar 14, 2020 15:29
== END 2020-03-14 15:12 | disposition home or self-care (01) ==
LOC: M LDO 12:19
PROVIDERS: ATTEND Obstetrics & Gynecology
DX: O99.89 Other specified diseases and conditions complicating pregnancy, childbirth and the puerperium (principal); R11.2 Nausea with vomiting, unspecified; R51 Headache; Z3A.23 23 weeks gestation of pregnancy
CPT/HCPCS: 96361; 96374; 96375; G0378; G0463; J2270

== ENCOUNTER → 2020-04-04 | Outpatient (REF) | payer BC ==
[~2020-04-04] MED LIST changes: +ACET-683 PO; +IRON1TAB2 PO; +ZOFR4TAB16 PO
[2020-04-04 14:17] LABS: HEMATOCRIT 33.8 % (36.0-47.0); HEMOGLOBIN 10.8 g/dl (12.0-15.5); MEAN CORPUSCULAR HEMOGLOBIN 27.8 pg (27.0-33.0); MEAN CORPUSCULAR VOLUME 87.1 fl (80.0-96.0); PLATELET COUNT, AUTOMATED 246 10^3/uL (150-450); RED BLOOD COUNT 3.88 10^6/uL (4.00-5.40); WHITE BLOOD COUNT 11.4 10^3/uL (4.0-10.0)
[2020-04-04 15:07] LABS: THYROID STIMULATING HORMONE 1.39 uIU/ML (0.358-3.740)
== END ==
LOC: M PLALAB 08:25
PROVIDERS: ATTEND Advanced Practice Midwife
DX: O99.342 Other mental disorders complicating pregnancy, second trimester (principal)

== ENCOUNTER 2020-04-15 19:39 | Outpatient (CLI) | payer BC ==
[~2020-04-15] VITALS: Ht 162.6 cm; Wt 94.9 kg
[~2020-04-15 19:39] MED LIST changes: -IRON1TAB2 PO; -ZOFR4TAB16 PO
[2020-04-15 19:53] VITALS: BP 106/60
[2020-04-15 19:59] VITALS: BP 102/59
[2020-04-15] MEDS ORDERED: ZOFR4TAB16 PO (20:01)
[2020-04-15] MEDS ORDERED: IRON1TAB2 PO (20:01)
[2020-04-15] MEDS ORDERED: ONDANSETRON 4MG/2ML VIAL IV ONE (20:15)
[2020-04-15] MEDS ORDERED: LR 1,000 ML IV ONE (20:15)
[2020-04-15 20:46] LABS: HEMATOCRIT 29.5 % (36.0-47.0); HEMOGLOBIN 9.5 g/dl (12.0-15.5); MEAN CORPUSCULAR HEMOGLOBIN 26.8 pg (27.0-33.0); MEAN CORPUSCULAR HGB CONC 32.2 g/dl (32.0-36.5); MEAN CORPUSCULAR VOLUME 83.1 fl (80.0-96.0); PLATELET COUNT, AUTOMATED 255 10^3/uL (150-450); RED BLOOD COUNT 3.55 10^6/uL (4.00-5.40); WHITE BLOOD COUNT 13.2 10^3/uL (4.0-10.0)
[2020-04-15 21:10] VITALS: BP 99/53
[2020-04-15 21:28] LABS: ALBUMIN 2.5 GM/DL (3.2-5.2); ALT/SGPT 11 U/L (12-78); AMYLASE 36 U/L (25-115); BILIRUBIN,TOTAL 0.1 MG/DL (0.2-1.0); BLOOD UREA NITROGEN 7 MG/DL (7-18); CALCIUM LEVEL 8.2 MG/DL (8.5-10.1); CARBON DIOXIDE LEVEL 22 MEQ/L (21-32); CHLORIDE LEVEL 107 MEQ/L (98-107); CREATININE FOR GFR 0.39 MG/DL (0.55-1.30); GLOMERULAR FILTRATION RATE > 60.0 (>60); GLUCOSE, FASTING 79 MG/DL (70-100); LIPASE 88 U/L (73-393); POTASSIUM SERUM 3.6 MEQ/L (3.5-5.1); SODIUM LEVEL 138 MEQ/L (136-145); TOTAL PROTEIN 6.1 GM/DL (6.4-8.2)
[2020-04-15 22:18] VITALS: BP 99/57
--- NOTE | 2020-04-15 22:53 | IPNPDOC ---
Obstetrical Progress Note Date of Service Apr 15, 2020 Subjective Patient complains of nausea, vomiting, and diarrhea for the past 24 hours. No fever. No localized abdominal/pelvic pain. Denies uterine contractions, loss of fluid, or vaginal bleeding. No movement. Objective Vital Signs Date Time Temp Pulse Resp B/P (MAP) Pulse Ox O2 Delivery O2 Flow Rate FiO2 04/15/20 22:18 82 18 99/57 (71) 04/15/20 19:53 98.5 Assessment Heart Rate (FHR): 150 Variability: Moderate Accelerations: Positive Decelerations: None Heart Rate Tracing: Category I (Reactive) Tocometer Contractions: No Assessment and Plan Additional Comments Abd: soft,nt,nd, uterine fundus nontender. Negative McBurney's, Negative Harris's No CVAT See labs: wnl (mild anemia) A/P: Viral gastroenteritis. 27+ weeks EGA. Reassuring status. Patient reports feeling improved after IV hydration and antiemetic -Fever/infectious, pain and bleeding precautions were reviewed. -Follow up in office as scheduled or sooner PRN. OLIVER CONCEPCION DO Apr 15, 2020 22:53
== END 2020-04-15 22:16 | disposition home or self-care (01) ==
LOC: M LDO 19:39
PROVIDERS: ATTEND Obstetrics & Gynecology
DX: O99.612 Diseases of the digestive system complicating pregnancy, second trimester (principal); A08.4 Viral intestinal infection, unspecified; Z3A.27 27 weeks gestation of pregnancy
CPT/HCPCS: 80053; 82150; 83690; 85027; 96361; 96374; G0378; G0463; J2405

== ENCOUNTER 2020-05-02 11:23 | Outpatient (CLI) | payer BC ==
[~2020-05-02] VITALS: Ht 162.6 cm; Wt 93.8 kg
[~2020-05-02 11:23] MED LIST changes: +IRON1TAB2 PO; +ZOFR4TAB16 PO
[2020-05-02] MEDS ORDERED: IRON SUCROSE 500 MG in NS 250 ML OVER 4 HRS IV ONE (11:30)
[2020-05-02 11:43] VITALS: BP 137/54
[2020-05-02 13:00] VITALS: BP 110/53
[2020-05-02 14:00] VITALS: BP 101/46
[2020-05-02 15:00] VITALS: BP 128/58
[2020-05-02] MEDS ORDERED: ONDANSETRON 4MG/2ML VIAL IV ONE (15:30)
[2020-05-02 17:00] VITALS: BP 96/53
[2020-05-02 17:30] VITALS: BP 122/56
== END 2020-05-02 17:30 | disposition home or self-care (01) ==
LOC: M INFU 11:23
PROVIDERS: ATTEND Advanced Practice Midwife
DX: D64.9 Anemia, unspecified (principal); Z88.0 Allergy status to penicillin
CPT/HCPCS: 96365; 96366; J1756; J2405

== ENCOUNTER 2020-05-30 14:35 | Outpatient (CLI) | payer BC ==
[~2020-05-30] VITALS: Ht 162.6 cm; Wt 95.9 kg
[2020-05-30 15:03] VITALS: BP 113/56
--- NOTE | 2020-05-30 15:57 | IPNPDOC ---
Obstetrical Progress Note Date of Service May 30, 2020 Subjective 25 yo at 34 3/7 weeks gestation presents with several days of sharp stabbing lower pelvic pain. It is worse when walking or climbing stairs. It does not hurt if she is sitting still. no bleeding. Objective Vital Signs Date Time Temp Pulse Resp B/P (MAP) Pulse Ox O2 Delivery O2 Flow Rate FiO2 05/30/20 15:03 99.0 94 18 113/56 (75) Assessment Variability: Moderate Accelerations: Positive Decelerations: None Heart Rate Tracing: Category I Tocometer Contractions: No Sterile Vaginal Examination Dilation: None Station: -3 Cervical Consistency: Firm Cervical Position: Posterior Assessment and Plan Age: 25 : 2 Term: 1 Status: Reassuring Additional Comments 25 at 34 2/7 weeks with pubic joint diastasis rest, heat, Tylenol offered maternity binder fu office as scheduled. DEAN SCOTT MD May 30, 2020 15:57
== END 2020-05-30 15:55 | disposition home or self-care (01) ==
LOC: M LDO 14:35
PROVIDERS: ATTEND Specialist
DX: O26.893 Other specified pregnancy related conditions, third trimester (principal); Z3A.34 34 weeks gestation of pregnancy; R10.2 Pelvic and perineal pain
CPT/HCPCS: 59025; G0378; G0463

== ENCOUNTER → 2020-06-14 | Outpatient (REF) | payer BC | LOC: M PLALAB 12:19 | PROVIDERS: ATTEND Advanced Practice Midwife | DX: Z34.83 Encounter for supervision of other normal pregnancy, third trimester (principal); Z3A.36 36 weeks gestation of pregnancy ==

== ENCOUNTER 2020-06-27 20:06 | Inpatient (IN) | payer BC ==
[~2020-06-27] VITALS: Ht 162.6 cm; Wt 94.6 kg
[~2020-06-27 20:06] MED LIST changes: -SERT50TA29; +SERT50TA29 PO
[2020-06-27] MEDS ORDERED: LR 1,000 ML IV SCH (20:40)
[2020-06-27] MEDS ORDERED: LACTATED RINGER'S 1000 ML IV STA (20:40)
[2020-06-27] MEDS ORDERED: OXYTOCIN DRIP 30 UNITS in IV 1 EA IV SCH (20:45)
--- NOTE | 2020-06-27 20:50 | HPEPDOC ---
Obstetrical History & Physical General Date of Admission Jun 27, 2020 at 20:39 History of Present Illness 25-year-old G2, P1001 at 38+2 weeks gestation. Presents after large loss of clear fluid at 1700. Complains of irregular, mildly uncomfortable uterine contractions over the past several hours. Denies any heavy vaginal bleeding, but she has had some bloody show. Reports regular movement. ROS: no ESPAÑA, cp, sob, fever/chills/nausea/vomiting. course: uncomplicated PMH: Anxiety SH: eye surgery Meds: vitamin, Zoloft 100mg daily All: NKDA FIRM ADMINISTRATOR: No STI or dysplasia OB: G1, (02/2019): , uncomplicated, 38+5 weeks Sochx: No tobacco, alcohol or drug use FamHx: PGM breast CA, rectal CA, DM. GGM ovarian cancer labs: Blood type O+, antibody screen negative, HepBsAg neg, HIV neg, rubella immune, Hep C antibody negative, RPR nonreactive, CT/GC neg, urine culture negative, 1 hour glucose challenge test 83, GBS negative imaging: no anomalies or placental abnormalities Past Medical History Allergies Coded Allergies: Penicillins (Verified Allergy, Intermediate, HIVES, 03/09/19) hives Medications Scheduled Ferrous Sulfate (Iron) 325 Mg Tablet, 1 TAB PO BID Ondansetron HCl (Zofran) 4 Mg Tablet, 1 TAB PO Q6H No122/Iron/Folic Acid ( Multi Tablet) 1 Each Tablet, 1 TAB PO DAILY Scheduled PRN Acetaminophen (Acetaminophen) 500 Mg Tablet, 1,000 MG PO Q6H PRN for HEADACHE Miscellaneous Medications Sertraline HCl (Sertraline HCl) 50 Mg Tablet Physical Examination Physical Examination GENERAL: Alert and oriented times three. BREAST: . ABDOMEN: Gravid and non-tender to touch. FETUS: Is vertex (VTX) by sterile vaginal examination (SVE), fetus is vertex (VTX) by Prince. HEART RATE: Regular rate and rhythm. LUNGS: Clear to auscultation (CTA). EXTREMITIES: No edema. No clonus. Deep tendon reflexes (DTRs) + PELVIC: SSE: +pooling, nitrazine and ferning. +bloody show SVE: 2-3cm, 50%, -3. EFM: Cat I [place]: ctxs every 3-7min; nonpainful. Laboratory Data 24H LABS Laboratory Tests 2 06/27/20 20:41: Serology Scanned Report Hepatitis B Testing Assessment/Plan Assessment 25-year old at 38+2 weeks gestation. Dx:. Spontaneous rupture of membranes, early active labor versus latent labor/ prelabor rupture of membranes. Reassuring maternal and status. Plan Admit and orient. Routine labs/orders Augment labor with Pitocin as needed Mode of delivery plan: ; as indicated. OLIVER CONCEPCION DO Jun 27, 2020 20:49
[2020-06-27 21:46] LABS: HEMATOCRIT 34.8 % (36.0-47.0); HEMOGLOBIN 11.4 g/dl (12.0-15.5); MEAN CORPUSCULAR HEMOGLOBIN 26.8 pg (27.0-33.0); MEAN CORPUSCULAR HGB CONC 32.8 g/dl (32.0-36.5); MEAN CORPUSCULAR VOLUME 81.9 fl (80.0-96.0); PLATELET COUNT, AUTOMATED 207 10^3/uL (150-450); RED BLOOD COUNT 4.25 10^6/uL (4.00-5.40); WHITE BLOOD COUNT 10.7 10^3/uL (4.0-10.0)
--- NOTE | 2020-06-28 00:42 | IPNPDOC ---
Obstetrical Progress Note Date of Service Jun 28, 2020 Subjective Patient starting to feel uncomfortable with contractions. No vaginal bleeding. No headache, visual changes, right upper quadrant pain, shortness of breath or chest pain. No subjective fever, chills, myalgias. Assessment Heart Rate Tracing: Category I Tocometer Contractions: Yes Frequency: irregular Sterile Vaginal Examination Dilation: 3 cm Effacement (%): 50% Station: -3 Cervical Consistency: Soft Cervical Position: Anterior Postion/Presentation: Cephalic presentation Assessment and Plan Additional Comments Normotensive. Normal heart rate. Afebrile SVE: 3 cm, 50%, -3station, cephalic, no bloody show EFM: Category 1 heart rate tracing [place]: contractions are irregular, every 2-7 minutes A/P: Early Active phase of labor slightly protracted. Reassuring maternal and status. -Patient needs active management, labor augmentation -Start Pitocin, low-dose protocol DO DEEPTI Lynch JONATHAN R. DO Jun 28, 2020 00:42
[2020-06-28] MEDS ORDERED: FENTANYL 2MCG/ML ROPIVACAINE 0.2% IN 0.9% NACL 100ML IVBAG As Ordered ONE (05:21)
[2020-06-28] MEDS ORDERED: ONDANSETRON 4MG/2ML VIAL IV PRN ×2 (05:34→06:00)
[2020-06-28] MEDS ORDERED: EPIDURAL COMMENT XX SCH (05:34)
[2020-06-28] MEDS ORDERED: LACTATED RINGER'S 1000 ML IV PRN (05:34)
[2020-06-28] MEDS ORDERED: FENTANYL/ROPIVACAINE/NACL BAG 100 ML EPIDURAL SCH (05:34)
[2020-06-28] MEDS ORDERED: REFRIGERATOR IV KEYS XX PRN (05:34)
[2020-06-28] MEDS ORDERED: ePHEDrine SULFATE 25 MG/5 ML(5MG/ML) SYRINGE IV PRN (05:34)
[2020-06-28] MEDS ORDERED: EPIDURAL/PCA KEYS XX PRN (05:34)
[2020-06-28] MEDS ORDERED: diphenhydrAMINE 50MG/ML VIAL (J1200) IV PRN (05:34)
[2020-06-28] MEDS ORDERED: NALOXONE INJ 0.4MG/1ML VIAL (J2310 PER 1MG) IV PRN (05:34)
[2020-06-28] MEDS ORDERED: OXYTOCIN DRIP 30 UNITS in IV 1 EA IV SCH (05:56)
[2020-06-28] MEDS: LR 1,000 ML IV SCH ×2 (05:56→13:56)
[2020-06-28] MEDS ORDERED: MEASLES,MUMPS,RUBELLA VACCINE INJ (MMR-II) (90707) SC SCH (06:00)
[2020-06-28] MEDS ORDERED: BENZOCAINE 20% HEMORRHOIDAL OINTMENT 28GM TUBE TOP PRN (06:00)
[2020-06-28] MEDS ORDERED: IBUPROFEN 600MG TAB PO PRN (06:00)
[2020-06-28] MEDS ORDERED: DOCUSATE SODIUM 100MG CAPSULE PO PRN (06:00)
[2020-06-28] MEDS ORDERED: ACETAMINOPHEN 500 MG TAB PO PRN (06:00)
[2020-06-28] MEDS ORDERED: RHOGAM 300 MCG (1500 IU) INJ (J2790) IM SCH (06:00)
[2020-06-28] MEDS ORDERED: ACETAMINOPHEN TAB 650MG DOSE (2X325MG) PO PRN (06:00)
--- NOTE | 2020-06-28 06:02 | DNPDOC ---
[facility] Delivery Note Delivery Note DATE OF DELIVERY: 06/28/2020 TIME OF DELIVERY: 0538 Spontaneous vaginal delivery. SAFETY INSPECTOR: Dr. Jd Washington DO FACOG ANESTHESIA: none LACERATION: none ESTIMATED BLOOD LOSS: 200 mL. FINDINGS: 8 pound 5 ounce (3760g) Female , Score 9 and 9. DELIVERY SUMMARY: The active phase and second stage of labor progressed in normal fashion.. She received Pitocin augmentation throughout her labor course. The head delivered in the FLORINDA position, and restituted LOT. No nuchal cord was noted. The anterior shoulder delivered with gentle downward guidance and the remainder of the body delivered with ease. The baby was placed on the patient's chest. Delayed cord clamping occurred for approximately 1 minute. The cord was then doubly clamped and cut. IV Pitocin was bolused to actively manage the thi rd stage of labor. The placenta delivered intact without any difficulty within 10 minutes of delivery. The uterine fundus was noted to be firm and 2 cm below the umbilicus. The cervix, vagina, vulva and perineum were inspected. No lacerations present. Excellent hemostasis was noted. Sponge, needle and instrument counts were correct per protocol. DO DEEPTI Jama JONATHAN R. DO Jun 28, 2020 06:02
[2020-06-28] MEDS: IBUPROFEN 800 MG TAB PO PRN ×2 (06:30→15:36)
[2020-06-28 07:15] VITALS: BP 114/56
[2020-06-28 07:55] VITALS: BP 135/77
[2020-06-28] MEDS: PRENATAL VITAMINS CHEWABLE TABLET PO SCH (12:15)
[2020-06-28] MEDS: SERTRALINE 100 MG TAB PO SCH (12:15)
[2020-06-28 18:00] VITALS: BP 143/76
[2020-06-29 06:04] VITALS: BP 137/82
[2020-06-29] MEDS: PRENATAL VITAMINS CHEWABLE TABLET PO SCH (08:10)
[2020-06-29] MEDS: SERTRALINE 100 MG TAB PO SCH (08:11)
== END 2020-06-29 12:40 | disposition home or self-care (01) | DRG 560 ==
LOC: M LDO 20:06 → M LDI 20:39 → M OBS 06-28 07:44
PROVIDERS: ADMIT Obstetrics & Gynecology; ATTEND Obstetrics & Gynecology
PROC: 10E0XZZ Delivery of Products of Conception, External Approach (ICD-10-PCS; principal; 2020-06-28)
DX: O42.02 Full-term premature rupture of membranes, onset of labor within 24 hours of rupture (principal); Z3A.38 38 weeks gestation of pregnancy; Z37.0 Single live birth

== ENCOUNTER → 2020-08-04 | Outpatient (REF) | payer BC ==
[~2020-08-04] MED LIST changes: -CLIN150C14 PO; +CLIN150C15 PO
[2020-08-04 13:07] LABS: HCG, SERUM QUALITATIVE NEGATIVE (NEGATIVE)
[2020-08-04 13:19] LABS: HCG, SERUM QUANTITATIVE < 1.0 MIU/ML
== END ==
LOC: M LAB REF 11:59
PROVIDERS: ATTEND Registered Nurse
DX: N91.2 Amenorrhea, unspecified (principal)

== ENCOUNTER → 2020-09-25 | Outpatient (CLI) | payer BC ==
--- NOTE | 2020-09-26 11:42 | REP ---
INDICATION: PELVIC PAIN COMPARISON: None. TECHNIQUE: Transabdominal pelvic ultrasound followed by transvaginal examination for better evaluation of the endometrium and adnexa with color Doppler evaluation of the ovaries. FINDINGS: Bladder is unremarkable and measures 9.7 x 7.4 x 9.5 cm. Normal anteverted uterus measures 7.7 x 2.5 x 5.6 cm. The endometrial complex measures 1.5 mm thickness. Small echogenic foci in the lower uterine segment may represent punctate nonspecific calcification. No further abnormality noted. Bilateral ovaries are normal in appearance and vascularity without evidence for torsion. Right ovary measures 2.3 x 1.5 x 2.4 cm; R I = 0.54. Left ovary measures 2.7 x 1.8 x 1.7 cm; R I = 0.57. No pelvic fluid or adnexal mass lesion IMPRESSION: Essentially normal pelvic ultrasound. <Electronically signed by Agapito Bradley > 09/26/20 [id number]
== END ==
LOC: M RAD 15:58
PROVIDERS: ATTEND Obstetrics & Gynecology
DX: R10.2 Pelvic and perineal pain (principal)

== ENCOUNTER → 2020-10-17 | Outpatient (REF) | payer BC ==
[2020-10-17 19:39] LABS: CHLAMYDIA DNA AMPLIFICATION NEGATIVE (NEGATIVE); GC DNA AMPLIFICATION NEGATIVE (NEGATIVE)
== END ==
LOC: M SFHCWAGY 16:49
PROVIDERS: ATTEND Obstetrics & Gynecology
DX: Z11.3 Encounter for screening for infections with a predominantly sexual mode of transmission (principal)

== ENCOUNTER → 2020-11-03 | Outpatient (REF) | payer BC | LOC: M SFHCWAGY 10:22 | PROVIDERS: ATTEND Obstetrics & Gynecology | DX: R10.2 Pelvic and perineal pain (principal) ==

== ENCOUNTER → 2021-01-16 | Outpatient (CLI) | payer BC | LOC: M PLALAB 13:46 | PROVIDERS: ATTEND Obstetrics & Gynecology | DX: Z32.01 Encounter for pregnancy test, result positive (principal) ==

== ENCOUNTER → 2021-01-19 | Outpatient (REF) | payer BC ==
[2021-01-19 18:09] LABS: AMYLASE 40 U/L (25-115); LIPASE 135 U/L (73-393)
== END ==
LOC: M LAB REF 16:25
PROVIDERS: ATTEND Physician Assistant Medical
DX: R10.31 Right lower quadrant pain (principal); N39.0 Urinary tract infection, site not specified; R10.13 Epigastric pain

== ENCOUNTER → 2021-04-04 | Outpatient (CLI) | payer BC ==
[~2021-04-04] MED LIST changes: -CLIN150C15 PO; +CLIN150C17 PO
[2021-04-04 15:36] LABS: HEMATOCRIT 38.1 % (36.0-47.0); HEMOGLOBIN 12.2 g/dl (12.0-15.5); MEAN CORPUSCULAR HEMOGLOBIN 26.7 pg (27.0-33.0); MEAN CORPUSCULAR VOLUME 83.4 fl (80.0-96.0); PLATELET COUNT, AUTOMATED 309 10^3/uL (150-450); RED BLOOD COUNT 4.57 10^6/uL (4.00-5.40); WHITE BLOOD COUNT 13.1 10^3/uL (4.0-10.0)
[2021-04-04 16:53] LABS: HEPATITIS C VIRUS ABY INDEX < 0.0 INDEX (<0.8); HIV 1&2 SCREEN CENTAUR NEGATIVE (NEGATIVE)
[2021-04-04 17:07] LABS: GC DNA AMPLIFICATION NEGATIVE (NEGATIVE)
== END ==
LOC: M PLALAB 14:24
PROVIDERS: ATTEND Specialist
DX: Z34.81 Encounter for supervision of other normal pregnancy, first trimester (principal); Z3A.00 Weeks of gestation of pregnancy not specified

== ENCOUNTER 2021-05-18 17:26 | Emergency (ER) | payer BC ==
[~2021-05-18] VITALS: Ht 162.6 cm; Wt 93.8 kg
[2021-05-18 17:28] VITALS: BP 185/96
[2021-05-18] MEDS ORDERED: MULTTAB20 PO (17:40)
--- OUTSIDE RECORDS SUMMARY | 2021-05-18 17:45 | CCD ---
Author Author [facility] Organization [facility] Address Unknown Phone Unavailable Care Team Providers Care Rigger Supervisor Name Role Phone Tito St PROBLEMS Type Condition ICD9-CM Code [id number] Code Onset Dates Condition S tatus W/U Status Risk SNOMED Code Notes Problem Generalized anxiety disorder F41.1 Active confirme d 66960101 Problem Chronic endometritis N71.1 Active confirmed 42449251 Problem Supervision of other normal Z34.80 Ac tive confirm 471520561 Problem Mild episode of recurrent major depressive disorder F33.0 Active confirmed 372499770 Problem Recurrent major depressive disorder, in partial remission F33.41 Active confirmed 76643621 Problem Anemia complicating in third trimester O 99.013 Active confirmed 91452581 Problem Anxiety F41.9 Active confirmed 91768397 ALLERGIES Allergen (clinical drug ingredient) Drug/Non Drug Allergy do cumented on EMR Reaction Allergy Type Onset Date Status penicillin V Penicillin Unknown Drug Allergy Active ENCOUNTERS from 1993 to 2021-04-11 Encounter Location Date Provider Diagnosis [facility] [facility] [phone] [place] [address] Mar, Tito [facility] IMMUNIZATIONS Vaccine Route Administration Date Status TDAP 0.5mL (Boostrix) IM Intramuscular Apr 28, 2020 Administe red Influenza 6mo & up Fluzone IM Intramuscular Mar 31, 2020 Admi nistered SOCIAL HISTORY Tobacco Use: Social History Observation Description Date Details (start date - stop date) Former Smoker Sex Assigned At : Social History Observation Description Sex Assigned At Unknown Domestic Violence: Question Answer Notes Status: No history of abuse Alcohol Screening: Question Answer Notes Did you have a drink containing alcohol in the past year? No Points 0 Interpretation Negative Tobacco Use: Question Answer Notes Are you a: former smoker REASON FOR REFERRAL No Information VITAL SIGNS No information MEDICATIONS Medication SIG (Take, Route, Frequency, Duration) Notes Start Da te End Date Status Vitamin C 500 MG as directed Orally Not-Taking Doxycycline Monohydrate 100 MG 1 capsule Orally Twice a day for 14 day(s) Sep, Not-Taking Omeprazole 40 MG 1 capsule 30 minutes before morning meal Orally Once a day for 30 day(s) October, Not-Taking Zoloft 25 MG 1 tablet Orally Once a day for 30 day(s) 08 2019 Not-Taking Zoloft 100 MG 1 tablet Orally Once a day for 90 day(s) Not-Taking 27-1 MG 1 tablet Orally Once a day Active Iron 325 (65 Fe) MG 1 tablet Orally TID Not-Taking Ondansetron HCl 8 MG 1 tablet as needed Orally Ev elvia 8 hours as needed for 30 day(s) Dec, Not-Taking Keflex 500 MG 1 capsule Orally every 6 hrs for 10 day(s) 1 October, Not-Taking Zoloft 50 MG 1 tablet Orally Once a day for 30 day(s) 16 2020 Active PROCEDURES No Information RESULTS No Results REASON FOR VISIT Urine sample MEDICAL (GENERAL) HISTORY Type Description Date Medical History anxiety and depression Surgical History eye surgery bilateral Hospitalization History childbirth Goals Section No Information Health Concerns No Information MEDICAL EQUIPMENT No Information MENTAL STATUS No Information FUNCTIONAL STATUS No Information ASSESSMENTS No Information PLAN OF TREATMENT Next Appt Details Provider Name:Tito St, 2021-05-02 09:00:00 AM, [address] [facility], , [place], [address], Insurance Providers Payer Name Payer Address Payer Phone Insured Name Patient Relati onship to Insured Coverage Start Date Coverage End Date CLEO GARLAND O [phone] [facility] Handseeing Information [facility] [address] [facility] [id number] STEPHANIE MIKE
--- OUTSIDE RECORDS SUMMARY | 2021-05-18 17:45 | CCD ---
Author Author [facility] Organization [facility] Address Unknown Phone Unavailable Care Team Providers Care Gas Scrubber Operator Name Role Phone Tito St PROBLEMS Type Condition ICD9-CM Code [id number] Code Onset Dates Condition S tatus W/U Status Risk SNOMED Code Notes Problem Generalized anxiety disorder F41.1 Active confirme d 18076682 Problem Chronic endometritis N71.1 Active confirmed 38806498 Problem Supervision of other normal Z34.80 Ac tive confirm 765118060 Problem Mild episode of recurrent major depressive disorder F33.0 Active confirmed 564291987 Problem Recurrent major depressive disorder, in partial remission F33.41 Active confirmed 57108563 Problem Anemia complicating in third trimester O 99.013 Active confirmed 51571378 Problem Anxiety F41.9 Active confirmed 97467516 ALLERGIES Allergen (clinical drug ingredient) Drug/Non Drug Allergy do cumented on EMR Reaction Allergy Type Onset Date Status penicillin V Penicillin Unknown Drug Allergy Active ENCOUNTERS from 1993 to 2021-04-16 Encounter Location Date Provider Diagnosis [facility] [address] [facility] [phone] [place] [address] 13 Mar, [address] Encounter for superv ision of other normal , first trimester Z34.81 and Less than 8 weeks gestation of Z3A.01 IMMUNIZATIONS Vaccine Route Administration Date Status TDAP [...] REASON FOR REFERRAL No Information VITAL SIGNS Weight 209.4 lbs Mar, Height 64 in Mar, BMI 35.943 kg/m2 Mar, Blood pressure systolic 116 mm Hg Mar, Blood pressure diastolic 70 mm Hg Mar, MEDICATIONS Medication SIG (Take, Route, Frequency, Duration) [...] Orally Once a day for 30 day(s) 2019 Not-Taking Zoloft 100 MG 1 tablet [...] Orally Once a day for 30 day(s) 2020 Active PROCEDURES No Information RESULTS Component Value Reference Range Type and Screen Prenatal1 Reviewed date:04/06/2021 20:35:15 Interpretation: Performing Lab:[facility] [address] [facility] [address] , ,[place] [address] AB SCREEN PNP1 GEL (VIS) NEGATIVE CBC - Complete Blood Count Reviewed date:04/06/2021 20:35:00 Interpretation: Performing Lab:[facility] [address] [facility] [address] , ,[place] [address] WHITE BLOOD COUNT 13.1 4.0-10.0 RED BLOOD COUNT 4.57 4.00-5.40 HEMOGLOBIN 12.2 12.0-15.5 HEMATOCRIT 38.1 36.0-47.0 MEAN CORPUSCULAR VOLUME 83.4 80.0-96.0 MEAN CORPUSCULAR HEMOGLOBIN 26.7 27.0-33.0 MEAN CORPUSCULAR HGB CONC 32.0 32.0-36.5 RED CELL DISTRIBUTION WIDTH 12.9 11.5-14.5 PLATELET COUNT, AUTOMATED 309 150-450 CHLAMYDIA & GC DNA AMPLIFICAT Reviewed date:04/06/2021 20:35:04 Interpretation: Performing Lab:[facility] [address] [place] [address] , ,[place] [address] CHLAMYDIA DNA AMPLIFICATION NEGATIVE NEGATIVE GC DNA AMPLIFICATION NEGATIVE NEGATIVE HEPATITIS C ANTIBODY INDEX Reviewed date:04/06/2021 20:35:08 Interpretation: Performing Lab:[facility] [address] [place] [address] , ,[place] [address] HEPATITIS C VIRUS MARGARITA INDEX < 0.0 <0.8 HIV 1and2 ANTIBODY SCREEN Reviewed date:04/06/2021 20:35:06 Interpretation: Performing Lab:[facility] [address] [facility] [address] , ,[place] [address] SYPHILIS ANTIBODY (RPR SCREEN) Reviewed date:04/06/2021 20:35:30 Interpretation: Performing Lab:[facility] [address] [facility] [address] , ,[place] [address] SYPHILIS NONREACTIVE NONREACTIVE RUBELLA IMMUNE STATUS IgG Reviewed date:04/06/2021 20:34:52 Interpretation: Performing Lab:[facility] [address] [facility] [address] , ,[place] [address] RUBELLA IgG QUALITATIVE IMMUNE IMMUNE URINE CULTURE Reviewed date:04/06/2021 20:35:10 Interpretation: Performing Lab:[facility] [address] [facility] [address] , ,[place] [address] HBSAG Reviewed date:04/06/2021 20:35:13 Interpretation: Performing Lab:[facility] [address] [facility] [address] , ,[place] [address] HBsAg NEGATIVE NEGATIVE REASON FOR VISIT 1st pn MEDICAL (GENERAL) HISTORY Type Description Date Medical History anxiety and depression Surgical History eye surgery bilateral Hospitalization History childbirth Goals Section No Information Health Concerns No Information MEDICAL EQUIPMENT No Information MENTAL STATUS No Information FUNCTIONAL STATUS No Information ASSESSMENTS Encounter Date Diagnosis Assessment Notes Treatment Notes Treatm ent Clinical Notes Mar, Encounter for supervision of other normal , first trimester (ICD-10 - Z34.81) Mar, Less than 8 weeks gestation of (ICD-10 - Z3A.01) PLAN OF TREATMENT Next Appt Details Provider Name:Tito St, 2021-05-02 09:00:00 AM, [address] [facility], , [place], [address], Insurance Providers Payer Name Payer Address Payer Phone Insured Name Patient Relati onship to Insured Coverage Start Date Coverage End Date BCBS DAVID GARLAND PPO [phone] [facility] [employer] [place] [address] STEPHANIE MIKE
--- OUTSIDE RECORDS SUMMARY | 2021-05-18 17:45 | CCD ---
Author Author [facility] Organization [facility] Address Unknown Phone Unavailable Care Team Providers Care Handkerchief Presser Name Role Phone MacielTito PROBLEMS Type Condition ICD9-CM Code [id number] Code Onset Dates Condition S tatus W/U Status Risk SNOMED Code Notes Problem Generalized anxiety disorder F41.1 Active confirme d 37385885 Problem Mild episode of recurrent major depressive disorder F33.0 Active confirmed 068296738 Problem Supervision of other normal Z34.80 Ac tive confirm 356936316 Problem 11 weeks gestation of Z3A.11 Active confi rmed 72225432 Problem Recurrent major depressive disorder, in partial remission F33.41 Active confirmed 84556967 Problem Anemia complicating in third trimester O 99.013 Active confirmed 35036499 Problem Anxiety F41.9 Active confirmed 15153306 Problem Chronic endometritis N71.1 Active confirmed 11116507 ALLERGIES Allergen (clinical drug ingredient) Drug/Non Drug Allergy do cumented on EMR Reaction Allergy Type Onset Date Status penicillin V Penicillin Unknown Drug Allergy Active ENCOUNTERS from 1993 to 2021-05-09 Encounter Location Date Provider Diagnosis [facility] [address] [facility] [phone] [place] [address] 10 Apr, [address] Encounter for superv ision of normal in multigravida in first trimester Z34.81 and 11 weeks gestation of Z3A.11 IMMUNIZATIONS Vaccine Route Administration Date Status TDAP [...] FOR REFERRAL No Information VITAL SIGNS Weight 208.2 lbs Apr, Height 64 in Apr, BMI 35.737 kg/m2 Apr, Blood pressure systolic 116 mm Hg Apr, Blood pressure diastolic 72 mm Hg Apr, MEDICATIONS Medication SIG (Take, Route, Frequency, Duration) Notes Start Da te End Date Status Zoloft 25 MG 1 tablet Orally Once a day for 30 day(s) 08 2019 Not-Taking Omeprazole 40 MG 1 capsule 30 minutes before morning meal Orally Once a day for 30 day(s) October, Not-Taking Zoloft 50 MG 1 tablet Orally Once a day for 30 day(s) 2020 Active Ondansetron HCl 8 MG 1 tablet as needed Orally Ev elvia 8 hours as needed for 30 day(s) Dec, Not-Taking Iron 325 (65 Fe) MG 1 tablet Orally TID Not-Taking Doxycycline Monohydrate 100 MG 1 capsule Orally Twice a day for 14 day(s) Sep, Not-Taking Keflex 500 MG 1 capsule Orally every 6 hrs for 10 day(s) 1 October, Not-Taking 27-1 MG 1 tablet Orally Once a day Active Zoloft 100 MG 1 tablet Orally Once a day for 90 day(s) Not-Taking Vitamin C 500 MG as directed Orally Not-Taking PROCEDURES No Information RESULTS No Results REASON FOR VISIT 4 wk pn MEDICAL (GENERAL) HISTORY Type Description Date Medical History anxiety and depression Surgical History eye surgery bilateral Hospitalization History childbirth Goals Section No Information Health Concerns No Information MEDICAL EQUIPMENT No Information MENTAL STATUS No Information FUNCTIONAL STATUS No Information ASSESSMENTS Encounter Date Diagnosis Assessment Notes Treatment Notes Treatm ent Clinical Notes Apr, Encounter for supervision of normal in multigravida in first trimester (ICD-10 - Z34.81) Apr, 11 weeks gestation of (ICD-10 - Z3A.11 ) PLAN OF TREATMENT Next Appt Details Provider Name:Jd Washington, 09:00:00 AM, [address] [facility], , [place], [address], Insurance Providers Payer Name Payer Address Payer Phone Insured Name Patient Relati onship to Insured Coverage Start Date Coverage End Date BCBS DAVID GARLAND O [phone] [facility] [place] [address] STEPHANIE MIKE
--- OUTSIDE RECORDS SUMMARY | 2021-05-18 17:46 | CCD ---
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 Interpretation Code Description Data Smitha rce(s) Supporting Document(s) SARS-CoV-2 (COVID-19) RNA [Presence] in Respiratory specimen by JAVIER with probe detection Not detected [facility] This lab was ordered by [facility] and r eported by [email or web address]. ID Date Data Source [id number] 01/19/2021 11:49:00 AM EDT MED[facility] ([facility]) Name Value Range Interpretation Code Description Data Smitha rce(s) Supporting Document(s) Amylase [Enzymatic activity/volume] in Serum or Plasma 40 U/L 25- 115 [facility] <content>note:<nlbl:demographic_changed> </content>
<content></content> Lipoprotein lipase [Enzymatic activity/volume] in Serum or P lasma 135 U/L 73-393 [facility] <content>note:<nlbl:demographic_changed> </content>
<content></content> ID Date Data Source [id number] 01/19/2021 11:48:00 AM EDT [facility] ([facility]) Name Value Range Interpretation Code Description Data Smitha rce(s) Supporting Document(s) Bacteria identified in Urine by Culture Laboratory test result [facility] ([facility]) FULL REPORT IN LAB NOTES ([facility] NO GROWTH ID Date Data Source [id number] 01/19/2021 11:48:00 AM EDT [facility] Name Value Range Interpretation Code Description Data Smitha rce(s) Supporting Document(s) Urine Color Laboratory test result Abnormal (applies to non-numeric results) [facility] ([facility]) Urine PH 7.5 units 5.0-9.0 [facility] Urine Appearance Laboratory test result Abnormal (applies to non-numeric results) [facility] Specific gravity of Urine 1.005 1.005-1.030 [facility] Urine Leukocytes Laboratory test result Abnormal (applies to non-numeric results) [facility] ([facility]) Urine Blood Laboratory test result [facility] ([facility]) Urine Protein Laboratory test result 0-0 [facility] ([facility]) Urine Nitrite Laboratory test result [facility] ([facility]) Glucose [Presence] in Urine Laboratory test result [facility] ([facility]) Urine Ketone Laboratory test result [facility] ([facility] Bilirubin.total [Mass/volume] in Serum or Plasma Laboratory test resu lt [facility] ([facility]) Urine Urobilinogen 0.2 mg/dL 0.2-1.0 [facility] ([facility]) ID Date Data Source [id number] 01/19/2021 11:48:00 AM EDT [facility] ([facility]) Name Value Range Interpretation Code Description Data Smitha rce(s) Supporting Document(s) Glucose [Mass/volume] in Serum or Plasma 84 mg/dL 74-99 [facility] ([facility]) 100-125 mg/dL PRE-DIABETES/FASTING >126 mg/dL DIABETES/FASTING Creatinine 0.6 mg/dL 0.6-1.3 [facility]) Urea nitrogen [Mass/volume] in Serum or Plasma 20 mg/dL 7-18 [facility] ([facility]) Potassium [Moles/volume] in Serum or Plasma 4.5 meq/L 3.5-5.1 [facility] ([facility]) Sodium [Moles/volume] in Serum or Plasma 139 meq/L 136-145 [facility] Carbon dioxide, total [Moles/volume] in Serum or Plasma 30 meq/L 21 -32 [facility] ([facility]) Chloride [Moles/volume] in Serum or Plasma 103 meq/L 98-107 [facility] ([facility]) Calcium [Mass/volume] in Serum or Plasma 9.1 mg/dL 8.5-10.1 [facility] Total Bilirubin 0.3 mg/dL 0.2-1.0 [facility] Alkaline phosphatase isoenzyme [Units/volume] in Serum or Pl asma 102 mg/dL 46-116 [facility] Aspartate aminotransferase [Enzymatic activity/volume] in Serum or Plasma 18 U/L 15-37 [facility] ([facility] ) Alanine aminotransferase [Enzymatic activity/volume] in Seru m or Plasma 28 U/L 12-78 [facility] ([facility]) Albumin [Mass/volume] in Serum or Plasma 3.8 g/dL 3.4-5.0 [facility] ([facility]) Glomerular filtration rate/1.73 sq M pre dicted among non-blacks [Volume Rate/Area] in Serum or Plasma by Creatinine-based formula (MDRD) Laboratory test result [facility] ([facility] Proteinase 3 Ab [Units/volume] in Serum 7.4 g/dL 6.4-8.2 [facility] A/G Ratio 1.06 CALC 1.00-1.90 [facility] ([facility]) Glomerular filtration rate/1.73 sq M pre dicted among blacks [Volume Rate/Area] in Serum or Plasma by Creatinine-based formula (MDRD) Laboratory test result [facility]) <content>CHRONIC KIDNEY DISEASE STAGING PER NKF</content>
<content></content>
<content>STAGE I & II GFR >= 60 NORMAL TO MILDLY DECREASED</content>
<content>STAGE III GFR 30-59 MODERATELY DECREASED</content>
<content>STAGE IV GFR 15-29 SEVERELY DECREASED</content>
<content>STAGE V GFR <15 VERY LITTLE GFR LEFT</content>
<content>ESRD GFR <15 ON PURSE SEINER</content>
<content></content> ID Date Data Source [id number] 01/19/2021 11:48:00 AM EDT [facility] ([facility]) Name Value Range Interpretation Code Description Data Smitha rce(s) Supporting Document(s) Leukocytes [#/volume] in Blood by Automated count 10.4 x10*3/UL 4.1-1 0.9 [facility] Erythrocytes [#/volume] in Blood by Automated count 4.85 x10*6/UL 4.2 0-6.30 [facility] Hematocrit [Volume Fraction] of Blood by Automated count 38.4 % 3 7.0-51.0 [facility] Hemoglobin [Mass/volume] in Blood 13.2 g/dL 12.0-18.0 [facility] ([facility]) MCV 79.1 fL 80.0-97.0 [facility] ([facility]) MCH 27.3 pg 26.0-32.0 [facility] ([facility]) MCHC 34.5 g/dL 31.0-38.0 [facility] ([facility]) Platelets [#/volume] in Blood by Automated count 294 x10*3/UL 140-440 [facility] ([facility]) Erythrocyte distribution width [Ratio] by Automated count 12.5 % 11.6-13.7 [facility] ([facility]) MPV 8.4 FL 7.8-11.0 [facility] ([facility]) Lymph % 28.5 % 10.0-58.5 [facility]) Mid % 7.3 % 1.7-9.3 [facility]) Lymph # 2.9 x10*3/UL 0.6-4.1 [facility] ([facility]) Neut % 64.2 % 37.0-92.0 [facility] Mid # 0.8 x10*3/UL 0.1-0.6 [facility] ([facility]) Neut # 6.7 x10*3/UL 2.0-7.8 [facility] ([facility]) ID Date Data Source [id number] 11/03/2020 11:40:00 [place] [address] PHONE: [phone] FAX: [phone] Name .................. : CEE QUAN Franco Acct Number.................. : [id number] ROOM. ................. : Number ................... : [id number] Stay type ............. : O/P Discharge Date......... ... : 11/02/20 Admit Date ......... : 11/02/20 Admit Phys .................... : LUIGI Stoddard Date of ....... : 1995 Family Phys ................... : NON STAFF Phone .................. : [phone] Age ................................ : 25 Film# .................. .:[id number] Sex ................................. : F Unsigned transcriptions are preliminary reports and do not represent a medical or legal document CT ABD & PELVIS W/ IV ONLY [id number] COMPLETE:11/02/20 10:54 TOSIN [id number] Reason for Exam: RLQ Pain CT ABDOMEN & PELVIS WITH IV CONTRAST, 11/02/20: INDICATION: Right lower quadrant pain. FINDINGS: Visualized lung thomas are clear. No focal infiltrate or consolidation is identified. Heart appears unremarkable. Liver, gallbladder, spleen, adrenal glands, and pancreas appear unremarkable. The bilateral kidneys appear unremarkable. There is no hydronephrosis or nephrolithiasis identified. The appendix is within normal limits. The appendix is filled with high contrast material which may represent contrast or appendicolith. There is not any evidence of acute appendicitis identified. Moderate stool in the cecum. Urinary bladder appears unremarkable. No free fluid is identified in the pelvis. Osseous structures show no acute findings. IMPRESSION: Normal appendix. No clear evidence of appendicitis is identified. Remainder of examination is within normal limits. Moderate stool is identified in the cecum. No free fluid. While performing the above CT examination, radiation dose reduction was accomplished utilizing automated exposure control, adjusting of the mA and kV based on the patient's body size and/or the use of imperative reconstructive techniques. CT dose 1008.8 mGycm. Contrast agent in mL: 75 mL Isovue 370 Method of administration: Intravenous Examination dictated by OSWALD Thompson. Examination was reviewed with Vaibhav Esquivel MD, radiologist at the time of this dictation. Page 1 of [address] [place] [address] PHONE: [phone] FAX: [phone] Name .................. : CEE Gamez Acct Number.................. : [id number] ROOM. ................. : MR Number ................... : [id number] Stay type ............. : O/P Discharge Date......... ... : 11/02/20 Admit Date ......... : 11/02/20 Admit Phys .................... : LUIGI Stoddard Date of ....... : 1995 Family Phys ................... : NON STAFF Phone .................. : [phone] Age ................................ : 25 Film# .................. .:[id number] Sex ................................. : F Unsigned transcriptions are preliminary reports and do not represent a medical or legal document CT ABD & PELVIS W/ IV ONLY [id number] COMPLETE:11/02/20 10:54 TOSIN [id number] Reason for Exam: RLQ Pain Electronically Reviewed and Signed By Vaibhav Esquivel MD , 11/03/20 11:40, AML Transcribe Initials: SSR, Transcribe Date: 11/02/20 12:08, Dictation Date: Copy for: LUIGI CARMONA Copy for: 710 MED REC Page 2 of 2 Name Value Range Interpretation Code Description Data Smitha rce(s) Supporting Document(s) ID Date Data Source [id number] 10/19/2020 02:30:00 PM EDT [facility] ([facility]) Name Value Range Interpretation Code Description Data Smitha rce(s) Supporting Document(s) Glucose [Mass/volume] in Serum or Plasma 83 mg/dL 74-99 [facility] ([facility]) 100-125 mg/dL PRE-DIABETES/FASTING >126 mg/dL DIABETES/FASTING Urea nitrogen [Mass/volume] in Serum or Plasma 20 mg/dL 7-18 [facility] ([facility]) Sodium [Moles/volume] in Serum or Plasma 142 meq/L 136-145 [facility] ([facility]) Creatinine 0.8 mg/dL 0.6-1.3 [facility] ([facility]) Potassium [Moles/volume] in Serum or Plasma 3.9 meq/L 3.5-5.1 [facility] ([facility]) Carbon dioxide, total [Moles/volume] in Serum or Plasma 31 meq/L 21 -32 [facility] ([facility]) Calcium [Mass/volume] in Serum or Plasma 8.8 mg/dL 8.5-10.1 [facility] ([facility]) Chloride [Moles/volume] in Serum or Plasma 105 meq/L 98-107 [facility] ([facility]) Glomerular filtration rate/1.73 sq M pre dicted among blacks [Volume Rate/Area] in Serum or Plasma by Creatinine-based formula (MDRD) Laboratory test result [facility] <content>CHRONIC KIDNEY DISEASE STAGING PER NKF</content>
<content></content>
<content>STAGE I & II GFR >= 60 NORMAL TO MILDLY DECREASED</content>
<content>STAGE III GFR 30-59 MODERATELY DECREASED</content>
<content>STAGE IV GFR 15-29 SEVERELY DECREASED</content>
<content>STAGE V GFR <15 VERY LITTLE GFR LEFT</content>
<content>ESRD GFR <15 ON PURSE SEINER</content>
<content></content> Glomerular filtration rate/1.73 sq M pre dicted among non-blacks [Volume Rate/Area] in Serum or Plasma by Creatinine-based formula (MDRD) Laboratory test result [facility] ([facility] ) ID Date Data Source [id number] 10/19/2020 02:30:00 PM EDT [facility] Name Value Range Interpretation Code Description Data Smitha rce(s) Supporting Document(s) Leukocytes [#/volume] in Blood by Automated count 9.6 x10*3/UL 4.1-10 .9 [facility] ([facility] Erythrocytes [#/volume] in Blood by Automated count 4.47 x10*6/UL 4.2 0-6.30 [facility] ([facility] Hemoglobin [Mass/volume] in Blood 12.1 g/dL 12.0-18.0 [facility] ([facility] MCV 82.2 fL 80.0-97.0 [facility] ([facility]) Hematocrit [Volume Fraction] of Blood by Automated count 36.7 % 3 7.0-51.0 [facility] ([facility] Erythrocyte distribution width [Ratio] by Automated count 13.1 % 11.6-13.7 [facility] ([facility]) MCH 27.1 pg 26.0-32.0 [facility] ([facility] MCHC 33.0 g/dL 31.0-38.0 [facility] ([facility]) MPV 8.1 FL 7.8-11.0 [facility] ([facility]) Platelets [#/volume] in Blood by Automated count 341 x10*3/UL 140-440 [facility] ([facility] Lymph % 34.8 % 10.0-58.5 [facility] ([facility] Mid % 6.4 % 1.7-9.3 [facility] ([facility] Neut % 58.8 % 37.0-92.0 [facility] ([facility] Lymph # 3.3 x10*3/UL 0.6-4.1 [facility] ([facility]) Mid # 0.7 x10*3/UL 0.1-0.6 [facility] ([facility] Neut # 5.6 x10*3/UL 2.0-7.8 [facility] ID Date Data Source [id number] 08/04/2020 09:33:00 AM EST [facility] ([facility]) Name Value Range Interpretation Code Description Data Smitha rce(s) Supporting Document(s) HCG Serum Qualitative Laboratory test result [facility] ([facility]) <content>note:<nlbl:demographic_changed> </content>
<content></content> Choriogonadotropin.beta subunit [Moles/volume] in Seru m or Plasma Laboratory test result [facility] ([facility] ) GESTATIONAL AGE APPROXIMATE HCG RANGE (MIU/ML) - 0.2-1 WEEK 5-50 1-2 WEEKS 50-500 2-3 WEEKS 100-5,000 3-4 WEEKS 500-10,000 4-5 WEEKS 1,000-50,000 5-6 WEEKS 10,000-100,000 6-8 WEEKS 15,000-200,000 2-3 MONTHS 10,000-100,00 0 NON FEMALES LESS THAN 3.0 Patient samples may contain human heterophilic antibodies that could react with immunoassays to give falsely elevated or depressed results. This assay has been designed to minimize interference from heterophilic antibodies. Elevated hCG levels have also been associated with trophoblastic disease and nontrophoblastic neoplasms. The possibility of having these diseases should be considered before a diagnosis of is made. This test is not intended for use as a surrogate marker for aiding in the diagnosis or monitoring the treatment of cancer patients. [employer] methodology. ID Date Data Source [id number] 08/04/2020 09:32:00 AM EST [facility] ([facility]) Name Value Range Interpretation Code Description Data Smitha rce(s) Supporting Document(s) Thyrotropin [Units/volume] in Serum or Plasma by Detec tion limit <= 0.05 mIU/L 1.11 uIU/mL 0.36-3.74 [facility] ID Date Data Source [id number] 08/04/2020 09:32:00 AM EST [facility] ([facility]) Name Value Range Interpretation Code Description Data Smitha rce(s) Supporting Document(s) Cholesterol [Mass/volume] in Serum or Plasma 215 mg/dL 131-200 [facility] ([facility]) Triglyceride [Mass/volume] in Serum or Plasma 38 mg/dL 30-150 [facility] ([facility]) Cholesterol in LDL [Mass/volume] in Serum or Plasma by calcu lation 135 CALC 50-159 [facility] ([facility]) Cholesterol in HDL [Mass/volume] in Serum or Plasma 72 mg/dL 35-60 [facility] ([facility]) ID Date Data Source [id number] 08/04/2020 09:32:00 AM EST [facility] ([facility]) Name Value Range Interpretation Code Description Data Smitha rce(s) Supporting Document(s) Glucose [Mass/volume] in Serum or Plasma 93 mg/dL 74-99 [facility] ([facility]) 100-125 mg/dL PRE-DIABETES/FASTING >126 mg/dL DIABETES/FASTING Creatinine 0.7 mg/dL 0.6-1.3 [facility] ([facility]) Urea nitrogen [Mass/volume] in Serum or Plasma 16 mg/dL 7-18 [facility] ([facility]) Sodium [Moles/volume] in Serum or Plasma 144 meq/L 136-145 [facility] ([facility]) Potassium [Moles/volume] in Serum or Plasma 4.5 meq/L 3.5-5.1 [facility] ([facility]) Chloride [Moles/volume] in Serum or Plasma 108 meq/L 98-107 [facility] ([facility]) Carbon dioxide, total [Moles/volume] in Serum or Plasma 24 meq/L 21 -32 [facility] ([facility]) Calcium [Mass/volume] in Serum or Plasma 8.4 mg/dL 8.5-10.1 [facility] ([facility]) NOTE: RESULT VERIFIED. Alkaline phosphatase isoenzyme [Units/volume] in Serum or Pl asma 114 mg/dL 46-116 [facility] ([facility]) Total Bilirubin 0.3 mg/dL 0.2-1.0 [facility]) Aspartate aminotransferase [Enzymatic activity/volume] in Serum or Plasma 18 U/L 15-37 [facility] ([facility] ) Alanine aminotransferase [Enzymatic activity/volume] in Seru m or Plasma 33 U/L 12-78 [facility] Proteinase 3 Ab [Units/volume] in Serum 6.9 g/dL 6.4-8.2 [facility] ([facility]) Albumin [Mass/volume] in Serum or Plasma 3.5 g/dL 3.4-5.0 [facility] A/G Ratio 1.03 CALC 1.00-1.90 [facility] ([facility]) Glomerular filtration rate/1.73 sq M pre dicted among blacks [Volume Rate/Area] in Serum or Plasma by Creatinine-based formula (MDRD) Laboratory test result [facility] <content>CHRONIC KIDNEY DISEASE STAGING PER NKF</content>
<content></content>
<content>STAGE I & II GFR >= 60 NORMAL TO MILDLY DECREASED</content>
<content>STAGE III GFR 30-59 MODERATELY DECREASED</content>
<content>STAGE IV GFR 15-29 SEVERELY DECREASED</content>
<content>STAGE V GFR <15 VERY LITTLE GFR LEFT</content>
<content>ESRD GFR <15 ON PURSE SEINER</content>
<content></content> Glomerular filtration rate/1.73 sq M pre dicted among non-blacks [Volume Rate/Area] in Serum or Plasma by Creatinine-based formula (MDRD) Laboratory test result [facility] ([facility] ) ID Date Data Source [id number] 08/04/2020 09:32:00 AM EST [facility] ([facility]) Name Value Range Interpretation Code Description Data Smitha rce(s) Supporting Document(s) Erythrocytes [#/volume] in Blood by Automated count 4.60 x10*6/UL 4.2 0-6.30 [facility] Hemoglobin [Mass/volume] in Blood 12.4 g/dL 12.0-18.0 [facility] ([facility]) Leukocytes [#/volume] in Blood by Automated count 7.1 x10*3/UL 4.1-10 .9 [facility] ([facility]) Hematocrit [Volume Fraction] of Blood by Automated count 37.2 % 3 7.0-51.0 [facility] ([facility]) MCV 80.7 fL 80.0-97.0 [facility]) MCHC 33.3 g/dL 31.0-38.0 [facility]) MCH 26.9 pg 26.0-32.0 [facility]) Platelets [#/volume] in Blood by Automated count 245 x10*3/UL 140-440 [facility] ([facility]) Erythrocyte distribution width [Ratio] by Automated count 12.3 % 11.6-13.7 [facility] ([facility]) MPV 8.6 FL 7.8-11.0 [facility]) Lymph % 35.7 % 10.0-58.5 [facility] Mid % 8.8 % 1.7-9.3 [facility] Neut % 55.5 % 37.0-92.0 [facility] Lymph # 2.5 x10*3/UL 0.6-4.1 [facility] ([facility]) Neut # 3.9 x10*3/UL 2.0-7.8 [facility] ([facility]) Mid # 0.7 x10*3/UL 0.1-0.6 [facility] ([facility]) ID Date Data Source GROUP B STREP CULTURE 06/14/2020 12:00:00 AM EST eCW1 ([facility]) Name Value Range Interpretation Code Description Data Smitha rce(s) Supporting Document(s) GROUP B STREP CULTURE eCW1 ([facility]) ID Date Data Source Glucose Challenge Test 1 Hour 04/05/2020 09:52:34 AM EDT eCW 1 (Formerly [facility]) Name Value Range Interpretation Code Description Data Smitha rce(s) Supporting Document(s) 83 GLUCOSE CHALLENGE TEST 1 HOUR eCW1 (Formerly [facility]) ID Date Data Source TSH 04/05/2020 09:50:28 AM EDT eCW1 ([facility]) Name Value Range Interpretation Code Description Data Smitha rce(s) Supporting Document(s) 1.390 THYROID STIMULATING HORMONE eC W1 (Formerly [facility]) ID Date Data Source Type and Screen (D Rh Antibody Screen) 04/05/2020 09:50:12 A M EDT eCW1 (Formerly [facility]) Name Value Range Interpretation Code Description Data Smitha rce(s) Supporting Document(s) NEGATIVE AB SCREEN (INDIRECT COOMB S)VIS eCW1 ([facility]ly [facility]) O POSITIVE BLOOD TYPE eCW1 ([facility]) Procedure Social History Code Duration Value Status Description Data Source(s ) Smoking 05/02/2021 12:00:00 AM EST Former Smoker completed Former Smoker eCW1 ([facility]ly [facility]) Smoking 04/04/2021 12:00:00 AM EDT Former Smoker completed Former Smoker eCW1 ([facility]ly [facility]) Smoking 04/04/2021 12:00:00 AM EDT Former Smoker completed Former Smoker eCW1 ([facility]ly [facility]) Smoking 11/03/2020 12:00:00 AM EDT Former Smoker completed Former Smoker eCW1 ([facility]ly [facility]) Smoking 11/03/2020 12:00:00 AM EDT Former Smoker completed Former Smoker eCW1 ([facility]ly [facility]) Smoking 10/17/2020 12:00:00 AM EDT Former Smoker completed Former Smoker eCW1 ([facility]ly [facility]) Smoking 10/17/2020 12:00:00 AM EDT Former Smoker completed Former Smoker eCW1 ([facility]ly [facility]) Smoking 08/25/2020 12:00:00 AM EST Former Smoker completed Former Smoker eCW1 (Formerly [facility]) Smoking 08/25/2020 12:00:00 AM EST Former Smoker completed Former Smoker eCW1 (Formerly [facility]) Smoking 08/25/2020 12:00:00 AM EST Former Smoker completed Former Smoker eCW1 ([facility]ly [facility]) Smoking 06/21/2020 12:00:00 AM EST Former Smoker completed Former Smoker eCW1 ([facility]ly [facility]) Smoking 06/21/2020 12:00:00 AM EST Former Smoker completed Former Smoker eCW1 ([facility]ly [facility]) Smoking 06/08/2020 12:00:00 AM EST Former Smoker completed Former Smoker eCW1 ([facility]ly [facility]) Smoking 05/29/2020 12:00:00 AM EST Former Smoker completed Former Smoker eCW1 ([facility]ly [facility]) Smoking 05/29/2020 12:00:00 AM EST Former Smoker completed Former Smoker eCW1 ([facility]ly [facility]) Smoking 05/15/2020 12:00:00 AM EST Former Smoker completed Former Smoker eCW1 ([facility]ly [facility]) Smoking 05/15/2020 12:00:00 AM EST Former Smoker completed Former Smoker eCW1 ([facility]ly [facility]) Smoking 04/21/2020 12:00:00 AM EDT Former Smoker completed Former Smoker eCW1 ([facility]ly [facility]) Smoking 03/28/2020 12:00:00 AM EDT Former Smoker completed Former Smoker eCW1 ([facility]ly [facility]) Smoking 03/28/2020 12:00:00 AM EDT Former Smoker completed Former Smoker eCW1 (Formerly [facility]) Vital Signs ID Date Data Source UNK Name Value Range Interpretation Code Description Data Source(s) Body weight 208.2 [lb_av] 208.2 [lb_av] eCW1 ([facility]) Body height 64 [in_i] 64 [in_i] eCW1 ([facility]) Body mass index (BMI) [Ratio] 35.737 kg/m2 35.7 37 kg/m2 eCW1 ([facility]) Systolic blood pressure 116 mm[Hg] 116 mm[Hg] e CW1 ([facility]) Diastolic blood pressure 72 mm[Hg] 72 mm[Hg] eCW1 ([facility]) Body height 64 [in_i] 64 [in_i] eCW1 ([facility]) Body mass index (BMI) [Ratio] 35.943 kg/m2 35.9 43 kg/m2 eCW1 ([facility]) Systolic blood pressure 116 mm[Hg] 116 mm[Hg] e CW1 ([facility]) Diastolic blood pressure 70 mm[Hg] 70 mm[Hg] eCW1 ([facility]) Body weight 209.4 [lb_av] 209.4 [lb_av] eCW1 ([facility]) Diastolic blood pressure 628 mm[Hg] 628 mm[Hg] MEDENT ([facility]) Systolic blood pressure 92 mm[Hg] 92 mm[Hg] M EDENT ([facility]) Heart rate 68 /min 68 /min MEDENT ([facility]) Body height 63.50 [in_i] 63.50 [in_i] MEDENT ([facility]) 5'3.50" Body weight 203.00 [lb_av] 203.00 [lb_av] MEDEN T ([facility]) Body mass index (BMI) [Ratio] 35.4 kg/m2 35.4 k g/m2 MEDENT ([facility]) Body weight 196 [lb_av] 196 [lb_av] eCW1 ([facility]) Body height 64 [in_i] 64 [in_i] W1 ([facility]) Body mass index (BMI) [Ratio] 33.64 kg/m2 33.64 kg/m2 eCW1 ([facility]) Systolic blood pressure 104 mm[Hg] 104 mm[Hg] e CW1 ([facility]) Diastolic blood pressure 68 mm[Hg] 68 mm[Hg] eCW1 ([facility]) Systolic blood pressure 102 mm[Hg] 102 mm[Hg] M EDENT ([facility]) Diastolic blood pressure 70 mm[Hg] 70 mm[Hg] MEDENT ([facility]) Heart rate 85 /min 85 /min MEDENT ([facility]) Body height 63.50 [in_i] 63.50 [in_i] MEDENT ([facility]) 5'3.50" Body weight 199.00 [lb_av] 199.00 [lb_av] MEDEN T ([facility]) Oxygen saturation in Arterial blood by Pulse oximetry 99 % 99 % MEDENT ([facility]) Air Body mass index (BMI) [Ratio] 34.7 kg/m2 34.7 k g/m2 MEDENT ([facility]) Body weight 200.2 [lb_av] 200.2 [lb_av] eCW1 ([facility]) Body weight 90.81 kg 90.81 kg eCW1 ([facility]) Body height 64 [in_i] 64 [in_i] eCW1 ([facility]) Body mass index (BMI) [Ratio] 34.36 kg/m2 34.36 kg/m2 W1 ([facility]) Systolic blood pressure 100 mm[Hg] 100 mm[Hg] e CW1 ([facility]) Diastolic blood pressure 64 mm[Hg] 64 mm[Hg] eCW1 ([facility]) Body weight 196 [lb_av] 196 [lb_av] eCW1 ([facility]) Body height 64 [in_i] 64 [in_i] eCW1 ([facility]) Diastolic blood pressure 60 mm[Hg] 60 mm[Hg] eCW1 ([facility]) Body mass index (BMI) [Ratio] 33.64 kg/m2 33.64 kg/m2 eCW1 ([facility]) Systolic blood pressure 102 mm[Hg] 102 mm[Hg] e CW1 ([facility]) Systolic blood pressure 88 mm[Hg] 88 mm[Hg] M EDENT ([facility]) RT Arm Diastolic blood pressure 58 mm[Hg] 58 mm[Hg] MEDENT ([facility]) RT Arm Heart rate 64 /min 64 /min MEDENT ([facility]) Body height 63.50 [in_i] 63.50 [in_i] MEDENT ([facility]) 5'3.50" Body weight 189.00 [lb_av] 189.00 [lb_av] MEDEN T ([facility]) Body mass index (BMI) [Ratio] 33.0 kg/m2 33.0 k g/m2 MEDENT ([facility]) Body weight 208.6 [lb_av] 208.6 [lb_av] eCW1 ([facility]) Body weight 94.62 kg 94.62 kg eCW1 ([facility]) Body height 64 [in_i] 64 [in_i] eCW1 ([facility]) Body mass index (BMI) [Ratio] 35.806 kg/m2 35.8 06 kg/m2 eCW1 ([facility]) Systolic blood pressure 120 mm[Hg] 120 mm[Hg] e CW1 ([facility]) Diastolic blood pressure 82 mm[Hg] 82 mm[Hg] eCW1 ([facility]) Body weight 208.0 [lb_av] 208.0 [lb_av] eCW1 ([facility]) Body height 64 [in_i] 64 [in_i] eCW1 ([facility]) Body mass index (BMI) [Ratio] 35.703 kg/m2 35.7 03 kg/m2 eCW1 ([facility]) Systolic blood pressure 120 mm[Hg] 120 mm[Hg] e CW1 ([facility]) Diastolic blood pressure 78 mm[Hg] 78 mm[Hg] eCW1 ([facility]) Body weight 215 [lb_av] 215 [lb_av] eCW1 ([facility]) Systolic blood pressure 122 mm[Hg] 122 mm[Hg] e CW1 ([facility]) Body height 64 [in_i] 64 [in_i] eCW1 ([facility]) Diastolic blood pressure 70 mm[Hg] 70 mm[Hg] eCW1 ([facility]) Body mass index (BMI) [Ratio] 36.905 kg/m2 36.9 05 kg/m2 eCW1 ([facility]) Body weight 210 [lb_av] 210 [lb_av] eCW1 ([facility]) Body height 64 [in_i] 64 [in_i] eCW1 ([facility]) Body mass index (BMI) [Ratio] 36.046 kg/m2 36.0 46 kg/m2 eCW1 ([facility]) Systolic blood pressure 112 mm[Hg] 112 mm[Hg] e CW1 ([facility]) Diastolic blood pressure 62 mm[Hg] 62 mm[Hg] eCW1 ([facility]) Body weight 207.2 [lb_av] 207.2 [lb_av] eCW1 ([facility]) Body height 64 [in_i] 64 [in_i] eCW1 ([facility]) Body mass index (BMI) [Ratio] 35.566 kg/m2 35.5 66 kg/m2 eCW1 ([facility]) Systolic blood pressure 102 mm[Hg] 102 mm[Hg] e CW1 ([facility]) Diastolic blood pressure 66 mm[Hg] 66 mm[Hg] eCW1 ([facility]) Diastolic blood pressure 72 mm[Hg] 72 mm[Hg] eCW1 ([facility]) Body weight 202.0 [lb_av] 202.0 [lb_av] eCW1 ([facility]) Body height 64 [in_i] 64 [in_i] eCW1 ([facility]) Body mass index (BMI) [Ratio] 34.673 kg/m2 34.6 73 kg/m2 eCW1 ([facility]) Systolic blood pressure 116 mm[Hg] 116 mm[Hg] e CW1 ([facility]ly [facility]) Patient Treatment Plan of Care Planned Activity Planned Date Details Description Data Source (s) Omeprazole 40 MG Delayed Release Oral Capsule 11/03/2020 12:00:00 A M EDT eCW1 (Formerly [facility]) Omeprazole 40 MG Delayed Release Oral Capsule 11/03/2020 12:00:00 A M EDT eCW1 (Formerly [facility]) Doxycycline Monohydrate 100 MG Oral Capsule 10/17/2020 12:00:00 AM EDT eCW1 ([facility]ly [facility]) Doxycycline Monohydrate 100 MG Oral Capsule 10/17/2020 12:00:00 AM EDT eCW1 ([facility]ly [facility]) Sertraline 100 MG Oral Tablet [Zoloft] 07/08/2020 12:00:00 AM EST eCW1 ([facility]ly [facility])
--- OUTSIDE RECORDS SUMMARY | 2021-05-18 22:22 | CCD ---
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 Date......... ... : 11/02/20 Admit Date ......... : 11/02/20 Admit Phys .................... : LUIGI Stoddard Date of ....... : 1995 Family Phys ................... : NON STAFF Phone .................. : [phone] Age ................................ : 25 Film# .................. .:[id number] Sex ................................. : F Unsigned transcriptions are preliminary reports and do not represent a medical or legal document CT ABD & PELVIS W/ IV ONLY [id number] COMPLETE:11/02/20 10:54 TOSIN [id number] Reason for Exam: RLQ Pain Electronically Reviewed and Signed By Vaibhav Esquivel MD , 11/03/20 11:40, AML Transcribe Initials: SSR, Transcribe Date: 11/02/20 12:08, Dictation Date: Copy for: LUIGI CARMONA Copy for: 710 MED REC Page 2 of 2 Name Value Range Interpretation Code Description Data Smitha rce(s) Supporting Document(s) ID Date Data Source [id number] 10/19/2020 02:30:00 PM EDT [facility] ([facility]) Name Value Range Interpretation Code Description Data Smitha rce(s) Supporting Document(s) Glucose [Mass/volume] in Serum or Plasma 83 mg/dL 74-99 [facility] ([facility]) 100-125 mg/dL PRE-DIABETES/FASTING >126 mg/dL DIABETES/FASTING Urea nitrogen [Mass/volume] in Serum or Plasma 20 mg/dL 7-18 [facility] ([facility]) Sodium [Moles/volume] in Serum or Plasma 142 meq/L 136-145 [facility] ([facility]) Creatinine 0.8 mg/dL 0.6-1.3 [facility] ([facility]) Potassium [Moles/volume] in Serum or Plasma 3.9 meq/L 3.5-5.1 [facility] ([facility]) Carbon dioxide, total [Moles/volume] in Serum or Plasma 31 meq/L 21 -32 [facility] ([facility]) Calcium [Mass/volume] in Serum or Plasma 8.8 mg/dL 8.5-10.1 [facility] ([facility]) Chloride [Moles/volume] in Serum or Plasma 105 meq/L 98-107 [facility] ([facility]) Glomerular filtration rate/1.73 sq M pre dicted among blacks [Volume Rate/Area] in Serum or Plasma by Creatinine-based formula (MDRD) Laboratory test result [facility] <content>CHRONIC KIDNEY DISEASE STAGING PER NKF</content>
<content></content>
<content>STAGE I & II GFR >= 60 NORMAL TO MILDLY DECREASED</content>
<content>STAGE III GFR 30-59 MODERATELY DECREASED</content>
<content>STAGE IV GFR 15-29 SEVERELY DECREASED</content>
<content>STAGE V GFR <15 VERY LITTLE GFR LEFT</content>
<content>ESRD GFR <15 ON BPM SOLUTION ARCHITECT</content>
<content></content> Glomerular filtration rate/1.73 sq M pre dicted among non-blacks [Volume Rate/Area] in Serum or Plasma by Creatinine-based formula (MDRD) Laboratory test result [facility] ([facility] ) ID Date Data Source [id number] 10/19/2020 02:30:00 PM EDT [facility] Name Value Range Interpretation Code Description Data Smitha rce(s) Supporting Document(s) Leukocytes [#/volume] in Blood by Automated count 9.6 x10*3/UL 4.1-10 .9 [facility] Erythrocytes [#/volume] in Blood by Automated count 4.47 x10*6/UL 4.2 0-6.30 [facility] Hemoglobin [Mass/volume] in Blood 12.1 g/dL 12.0-18.0 [facility] MCV 82.2 fL 80.0-97.0 [facility] ([facility]) Hematocrit [Volume Fraction] of Blood by Automated count 36.7 % 3 7.0-51.0 [facility] Erythrocyte distribution width [Ratio] by Automated count 13.1 % 11.6-13.7 [facility] ([facility]) MCH 27.1 pg 26.0-32.0 [facility] MCHC 33.0 g/dL 31.0-38.0 [facility] ([facility]) MPV 8.1 FL 7.8-11.0 [facility] ([facility]) Platelets [#/volume] in Blood by Automated count 341 x10*3/UL 140-440 [facility] Lymph % 34.8 % 10.0-58.5 [facility] Mid % 6.4 % 1.7-9.3 [facility] Neut % 58.8 % 37.0-92.0 [facility] Lymph # 3.3 x10*3/UL 0.6-4.1 [facility] ([facility]) Mid # 0.7 x10*3/UL 0.1-0.6 [facility] Neut # 5.6 x10*3/UL 2.0-7.8 [facility] ID Date Data Source [id number] 08/04/2020 09:33:00 AM EST [facility] ([facility]) Name Value Range Interpretation Code Description Data Smitha rce(s) Supporting Document(s) HCG Serum Qualitative Laboratory test result [facility] ([facility]) <content>note:<nlbl:demographic_changed> </content>
<content></content> Choriogonadotropin.beta subunit [Moles/volume] in Seru m or Plasma Laboratory test result [facility] ([facility] ) GESTATIONAL AGE APPROXIMATE HCG RANGE [...] monitoring the treatment of cancer patients. [employer] methodology. ID Date Data Source [id number] 08/04/2020 09:32:00 AM EST [facility] ([facility]) Name Value Range Interpretation Code Description Data Smitha rce(s) Supporting Document(s) Thyrotropin [Units/volume] in Serum or Plasma by Detec tion limit <= 0.05 mIU/L 1.11 uIU/mL 0.36-3.74 [facility] ID Date Data Source [id number] 08/04/2020 09:32:00 AM EST [facility] ([facility]) Name Value Range Interpretation Code Description Data Smitha rce(s) Supporting Document(s) Cholesterol [Mass/volume] in Serum or Plasma 215 mg/dL 131-200 [facility] ([facility]) Triglyceride [Mass/volume] in Serum or Plasma 38 mg/dL 30-150 [facility] ([facility]) Cholesterol in LDL [Mass/volume] in Serum or Plasma by calcu lation 135 CALC 50-159 [facility] ([facility]) Cholesterol in HDL [Mass/volume] in Serum or Plasma 72 mg/dL 35-60 [facility] ([facility]) ID Date Data Source [id number] 08/04/2020 09:32:00 AM EST [facility] ([facility]) Name Value Range Interpretation Code Description Data Smitha rce(s) Supporting Document(s) Glucose [Mass/volume] in Serum or Plasma 93 mg/dL 74-99 [facility] ([facility]) 100-125 mg/dL PRE-DIABETES/FASTING >126 mg/dL DIABETES/FASTING Creatinine 0.7 mg/dL 0.6-1.3 [facility] ([facility]) Urea nitrogen [Mass/volume] in Serum or Plasma 16 mg/dL 7-18 [facility] ([facility]) Sodium [Moles/volume] in Serum or Plasma 144 meq/L 136-145 [facility] ([facility]) Potassium [Moles/volume] in Serum or Plasma 4.5 meq/L 3.5-5.1 [facility] ([facility]) Chloride [Moles/volume] in Serum or Plasma 108 meq/L 98-107 [facility] ([facility]) Carbon dioxide, total [Moles/volume] in Serum or Plasma 24 meq/L 21 -32 [facility] ([facility]) Calcium [Mass/volume] in Serum or Plasma 8.4 mg/dL 8.5-10.1 [facility] ([facility]) NOTE: RESULT VERIFIED. Alkaline phosphatase isoenzyme [Units/volume] in Serum or Pl asma 114 mg/dL 46-116 [facility] ([facility]) Total Bilirubin 0.3 mg/dL 0.2-1.0 [facility]) Aspartate aminotransferase [Enzymatic activity/volume] in Serum or Plasma 18 U/L 15-37 [facility] ([facility] ) Alanine aminotransferase [Enzymatic activity/volume] in Seru m or Plasma 33 U/L 12-78 [facility] Proteinase 3 Ab [Units/volume] in Serum 6.9 g/dL 6.4-8.2 [facility] ([facility]) Albumin [Mass/volume] in Serum or Plasma 3.5 g/dL 3.4-5.0 [facility] A/G Ratio 1.03 CALC 1.00-1.90 [facility] ([facility]) Glomerular filtration rate/1.73 sq M pre dicted among blacks [Volume Rate/Area] in Serum or Plasma by Creatinine-based formula (MDRD) Laboratory test result [facility] <content>CHRONIC KIDNEY DISEASE STAGING PER NKF</content>
<content></content>
<content>STAGE I & II GFR >= 60 NORMAL TO MILDLY DECREASED</content>
<content>STAGE III GFR 30-59 MODERATELY DECREASED</content>
<content>STAGE IV GFR 15-29 SEVERELY DECREASED</content>
<content>STAGE V GFR <15 VERY LITTLE GFR LEFT</content>
<content>ESRD GFR <15 ON BPM SOLUTION ARCHITECT</content>
<content></content> Glomerular filtration rate/1.73 sq M pre dicted among non-blacks [Volume Rate/Area] in Serum or Plasma by Creatinine-based formula (MDRD) Laboratory test result [facility] ([facility] ) ID Date Data Source [id number] 08/04/2020 09:32:00 AM EST [facility] ([facility]) Name Value Range Interpretation Code Description Data Smitha rce(s) Supporting Document(s) Erythrocytes [#/volume] in Blood by Automated count 4.60 x10*6/UL 4.2 0-6.30 [facility] Hemoglobin [Mass/volume] in Blood 12.4 g/dL 12.0-18.0 [facility] ([facility]) Leukocytes [#/volume] in Blood by Automated count 7.1 x10*3/UL 4.1-10 .9 [facility] ([facility]) Hematocrit [Volume Fraction] of Blood by Automated count 37.2 % 3 7.0-51.0 [facility] ([facility]) MCV 80.7 fL 80.0-97.0 [facility]) MCHC 33.3 g/dL 31.0-38.0 [facility]) MCH 26.9 pg 26.0-32.0 [facility]) Platelets [#/volume] in Blood by Automated count 245 x10*3/UL 140-440 [facility] ([facility]) Erythrocyte distribution width [Ratio] by Automated count 12.3 % 11.6-13.7 [facility] ([facility]) MPV 8.6 FL 7.8-11.0 [facility]) Lymph % 35.7 % 10.0-58.5 [facility]) Mid % 8.8 % 1.7-9.3 [facility]) Neut % 55.5 % 37.0-92.0 [facility]) Lymph # 2.5 x10*3/UL 0.6-4.1 [facility] ([facility]) Neut # 3.9 x10*3/UL 2.0-7.8 [facility] ([facility]) Mid # 0.7 x10*3/UL 0.1-0.6 [facility] ([facility]) ID Date Data Source GROUP B STREP CULTURE 06/14/2020 12:00:00 AM EST eCW1 ([facility]) Name Value Range Interpretation Code Description Data Smitha rce(s) Supporting Document(s) GROUP B STREP CULTURE eCW1 ([facility]) ID Date Data Source Glucose Challenge Test 1 Hour 04/05/2020 09:52:34 AM EDT eCW 1 ([facility]) Name Value Range Interpretation Code Description Data Smitha rce(s) Supporting Document(s) 83 GLUCOSE CHALLENGE TEST 1 HOUR eCW1 ([facility]) ID Date Data Source TSH 04/05/2020 09:50:28 AM EDT eCW1 ([facility]) Name Value Range Interpretation Code Description Data Smitha rce(s) Supporting Document(s) 1.390 THYROID STIMULATING HORMONE eC W1 ([facility]) ID Date Data Source Type and Screen (D Rh Antibody Screen) 04/05/2020 09:50:12 A M EDT eCW1 ([facility]) Name Value Range Interpretation Code Description Data Smitha rce(s) Supporting Document(s) NEGATIVE AB SCREEN (INDIRECT COOMB S)VIS eCW1 ([facility]) O POSITIVE BLOOD TYPE eCW1 ([facility]) Procedure Social History Code Duration Value Status Description Data Source(s ) Smoking 05/02/2021 12:00:00 AM EST Former Smoker completed Former Smoker eCW1 ([facility]) Smoking 04/04/2021 12:00:00 AM EDT Former Smoker completed Former Smoker eCW1 ([facility]) Smoking 04/04/2021 12:00:00 AM EDT Former Smoker completed Former Smoker eCW1 ([facility]) Smoking 11/03/2020 12:00:00 AM EDT Former Smoker completed Former Smoker eCW1 ([facility]) Smoking 11/03/2020 12:00:00 AM EDT Former Smoker completed Former Smoker eCW1 ([facility]) Smoking 10/17/2020 12:00:00 AM EDT Former Smoker completed Former Smoker eCW1 ([facility]) Smoking 10/17/2020 12:00:00 AM EDT Former Smoker completed Former Smoker eCW1 ([facility]) Smoking 08/25/2020 12:00:00 AM EST Former Smoker completed Former Smoker eCW1 ([facility]) Smoking 08/25/2020 12:00:00 AM EST Former Smoker completed Former Smoker eCW1 ([facility]) Smoking 08/25/2020 12:00:00 AM EST Former Smoker completed Former Smoker eCW1 ([facility]) Smoking 06/21/2020 12:00:00 AM EST Former Smoker completed Former Smoker eCW1 ([facility]) Smoking 06/21/2020 12:00:00 AM EST Former Smoker completed Former Smoker eCW1 ([facility]) Smoking 06/08/2020 12:00:00 AM EST Former Smoker completed Former Smoker eCW1 ([facility]) Smoking 05/29/2020 12:00:00 AM EST Former Smoker completed Former Smoker eCW1 ([facility]) Smoking 05/29/2020 12:00:00 AM EST Former Smoker completed Former Smoker eCW1 ([facility]) Smoking 05/15/2020 12:00:00 AM EST Former Smoker completed Former Smoker eCW1 ([facility]) Smoking 05/15/2020 12:00:00 AM EST Former Smoker completed Former Smoker eCW1 ([facility]) Smoking 04/21/2020 12:00:00 AM EDT Former Smoker completed Former Smoker eCW1 ([facility]) Smoking 03/28/2020 12:00:00 AM EDT Former Smoker completed Former Smoker eCW1 ([facility]) Smoking 03/28/2020 12:00:00 AM EDT Former Smoker completed Former Smoker eCW1 ([facility]) Vital Signs ID Date Data Source UNK Name Value Range Interpretation Code Description Data Source(s) Body weight 208.2 [lb_av] 208.2 [lb_av] eCW1 ([facility]) Body height 64 [in_i] 64 [in_i] W1 ([facility]) Body mass index (BMI) [Ratio] 35.737 kg/m2 35.7 37 kg/m2 eCW1 ([facility]) Systolic blood pressure 116 mm[Hg] 116 mm[Hg] e CW1 ([facility]) Diastolic blood pressure 72 mm[Hg] 72 mm[Hg] eCW1 ([facility]) Body weight 209.4 [lb_av] 209.4 [lb_av] eCW1 ([facility]) Body height 64 [in_i] 64 [in_i] eCW1 ([facility]) Body mass index (BMI) [Ratio] 35.943 kg/m2 35.9 43 kg/m2 eCW1 ([facility]) Systolic blood pressure 116 mm[Hg] 116 mm[Hg] e 1 ([facility]) Diastolic blood pressure 70 mm[Hg] 70 mm[Hg] eCW1 ([facility]) Diastolic blood pressure 628 mm[Hg] 628 mm[Hg] MEDREHAN ([facility]) Systolic blood pressure 92 mm[Hg] 92 mm[Hg] M EDENT ([facility]) Heart rate 68 /min 68 /min [facility] ([facility]) Body height 63.50 [in_i] 63.50 [in_i] YUKI ([facility]) 5'3.50" Body weight 203.00 [lb_av] 203.00 [lb_av] MEDEN T ([facility]) Body mass index (BMI) [Ratio] 35.4 kg/m2 35.4 k g/m2 [facility] ([facility]) Body weight 196 [lb_av] 196 [lb_av] W1 ([facility]) Body height 64 [in_i] 64 [in_i] W1 ([facility]) Body mass index (BMI) [Ratio] 33.64 kg/m2 33.64 kg/m2 eCW1 ([facility]) Systolic blood pressure 104 mm[Hg] 104 mm[Hg] e CW1 ([facility]) Diastolic blood pressure 68 mm[Hg] 68 mm[Hg] eCW1 ([facility]) Systolic blood pressure 102 mm[Hg] 102 mm[Hg] M EDENT ([facility]) Body weight 199.00 [lb_av] 199.00 [lb_av] MEDEN T ([facility]) Oxygen saturation in Arterial blood by Pulse oximetry 99 % 99 % MEDREHAN ([facility]) RM Air Body mass index (BMI) [Ratio] 34.7 kg/m2 34.7 k g/m2 [facility] ([facility]) Diastolic blood pressure 70 mm[Hg] 70 mm[Hg] [facility] ([facility]) Heart rate 85 /min 85 /min [facility] ([facility]) Body height 63.50 [in_i] 63.50 [in_i] [facility] ([facility]) 5'3.50" Body weight 200.2 [lb_av] 200.2 [lb_av] eCW1 ([facility]) Body weight 90.81 kg 90.81 kg eCW1 ([facility]) Body height 64 [in_i] 64 [in_i] eCW1 ([facility]) Body mass index (BMI) [Ratio] 34.36 kg/m2 34.36 kg/m2 W1 ([facility]) Systolic blood pressure 100 mm[Hg] 100 mm[Hg] e CW1 ([facility]) Diastolic blood pressure 64 mm[Hg] 64 mm[Hg] eCW1 ([facility]) Diastolic blood pressure 60 mm[Hg] 60 mm[Hg] eCW1 ([facility]) Body weight 196 [lb_av] 196 [lb_av] eCW1 ([facility]) Body height 64 [in_i] 64 [in_i] eCW1 ([facility]) Body mass index (BMI) [Ratio] 33.64 kg/m2 33.64 kg/m2 eCW1 ([facility]) Systolic blood pressure 102 mm[Hg] 102 mm[Hg] e CW1 ([facility]) Systolic blood pressure 88 mm[Hg] 88 mm[Hg] M EDENT ([facility]) RT Arm Diastolic blood pressure 58 mm[Hg] 58 mm[Hg] [facility] ([facility]) RT Arm Heart rate 64 /min 64 /min [facility] Body height 63.50 [in_i] 63.50 [in_i] [facility] ([facility]) 5'3.50" Body weight 189.00 [lb_av] 189.00 [lb_av] MEDEN T ([facility]) Body mass index (BMI) [Ratio] 33.0 kg/m2 33.0 k g/m2 [facility] ([facility]) Body weight 208.6 [lb_av] 208.6 [lb_av] eCW1 ([facility]) Body weight 94.62 kg 94.62 kg eCW1 ([facility]) Body height 64 [in_i] 64 [in_i] eCW1 ([facility]) Body mass index (BMI) [Ratio] 35.806 kg/m2 35.8 06 kg/m2 eCW1 ([facility]) Systolic blood pressure 120 mm[Hg] 120 mm[Hg] e CW1 ([facility]) Diastolic blood pressure 82 mm[Hg] 82 mm[Hg] eCW1 ([facility]) Body weight 208.0 [lb_av] 208.0 [lb_av] eCW1 ([facility]) Body height 64 [in_i] 64 [in_i] eCW1 ([facility]) Body mass index (BMI) [Ratio] 35.703 kg/m2 35.7 03 kg/m2 eCW1 ([facility]) Systolic blood pressure 120 mm[Hg] 120 mm[Hg] e CW1 ([facility]) Diastolic blood pressure 78 mm[Hg] 78 mm[Hg] eCW1 ([facility]) Systolic blood pressure 122 mm[Hg] 122 mm[Hg] e CW1 ([facility]) Diastolic blood pressure 70 mm[Hg] 70 mm[Hg] eCW1 ([facility]) Body weight 215 [lb_av] 215 [lb_av] eCW1 [facility] [facility]) Body height 64 [in_i] 64 [in_i] eCW1 (Formerly [facility], [facility]) Body mass index (BMI) [Ratio] 36.905 kg/m2 36.9 05 kg/m2 eCW1 ([facility]) Body weight 210 [lb_av] 210 [lb_av] eCW1 ([facility]) Body height 64 [in_i] 64 [in_i] eCW1 (Formerly [facility], [facility]) Body mass index (BMI) [Ratio] 36.046 kg/m2 36.0 46 kg/m2 eCW1 ([facility]) Systolic blood pressure 112 mm[Hg] 112 mm[Hg] e CW1 ([facility]) Diastolic blood pressure 62 mm[Hg] 62 mm[Hg] eCW1 ([facility]) Body weight 207.2 [lb_av] 207.2 [lb_av] eCW1 ([facility]) Body height 64 [in_i] 64 [in_i] eCW1 (Formerly [facility], [facility]) Body mass index (BMI) [Ratio] 35.566 kg/m2 35.5 66 kg/m2 eCW1 ([facility]) Systolic blood pressure 102 mm[Hg] 102 mm[Hg] e CW1 ([facility]) Diastolic blood pressure 66 mm[Hg] 66 mm[Hg] eCW1 ([facility]) Diastolic blood pressure 72 mm[Hg] 72 mm[Hg] eCW1 ([facility]) Body weight 202.0 [lb_av] 202.0 [lb_av] eCW1 ([facility]) Body height 64 [in_i] 64 [in_i] eCW1 (Formerly [facility], [facility]) Body mass index (BMI) [Ratio] 34.673 kg/m2 34.6 73 kg/m2 eCW1 ([facility]) Systolic blood pressure 116 mm[Hg] 116 mm[Hg] e CW1 ([facility]) Patient Treatment Plan of Care Planned Activity Planned Date Details Description Data Source (s) Omeprazole 40 MG Delayed Release Oral Capsule 11/03/2020 12:00:00 A M EDT eCW1 ([facility]) Omeprazole 40 MG Delayed Release Oral Capsule 11/03/2020 12:00:00 A M EDT eCW1 ([facility]) Doxycycline Monohydrate 100 MG Oral Capsule 10/17/2020 12:00:00 AM EDT eCW1 ([facility]) Doxycycline Monohydrate 100 MG Oral Capsule 10/17/2020 12:00:00 AM EDT eCW1 ([facility]) Sertraline 100 MG Oral Tablet [Zoloft] 07/08/2020 12:00:00 AM EST eCW1 ([facility])
== END 2021-05-18 22:20 | disposition left against medical advice (07) ==
LOC: M ED 17:26
DX: Z53.21 Procedure and treatment not carried out due to patient leaving prior to being seen by health care provider (principal)

== ENCOUNTER → 2021-07-10 | Outpatient (CLI) | payer MEDICARE | LOC: M WHC 08:34 | PROVIDERS: ATTEND Obstetrics & Gynecology | DX: Z36.3 Encounter for antenatal screening for malformations (principal); Z3A.21 21 weeks gestation of pregnancy ==

== ENCOUNTER → 2021-07-26 | Outpatient (CLI) | payer MEDICARE | LOC: M WHC 12:25 | PROVIDERS: ATTEND Obstetrics & Gynecology | DX: Z36.2 Encounter for other antenatal screening follow-up (principal); Z3A.00 Weeks of gestation of pregnancy not specified ==

== ENCOUNTER → 2021-09-04 | Outpatient (CLI) | payer OTHER ==
[2021-09-04 13:05] LABS: APPEARANCE, URINE CLEAR (CLEAR); BACTERIA, URINE AUTO NEGATIVE (NEGATIVE); BILIRUBIN, URINE AUTO NEGATIVE (NEGATIVE); BLOOD, URINE BLOOD NEGATIVE (NEGATIVE); COLOR, URINE YELLOW (YELLOW); GLUCOSE, URINE (UA) AUTO NEGATIVE (NEGATIVE); KETONE, URINE AUTO NEGATIVE (NEGATIVE); LEUKOCYTE ESTERASE, URINE AUTO NEGATIVE (NEGATIVE); NITRITE, URINE AUTO NEGATIVE (NEGATIVE); PROTEIN, URINE AUTO NEGATIVE (NEGATIVE); RBC, URINE AUTO 0 /HPF (0-3); SPECIFIC GRAVITY URINE AUTO 1.006 (1.002-1.035); SQUAMOUS EPITHELIAL CELL UR AU 0 /HPF (0-6); UROBILINOGEN, URINE AUTO 0.2 mg/dL (0.0-2.0); WBC, URINE AUTO 0 /HPF (0-3)
[2021-09-04 13:09] LABS: HEMATOCRIT 33.5 % (36.0-47.0); MEAN CORPUSCULAR HEMOGLOBIN 26.9 pg (27.0-33.0); MEAN CORPUSCULAR HGB CONC 32.8 g/dl (32.0-36.5); MEAN CORPUSCULAR VOLUME 81.9 fl (80.0-96.0); PLATELET COUNT, AUTOMATED 240 10^3/uL (150-450); RED BLOOD COUNT 4.09 10^6/uL (4.00-5.40); WHITE BLOOD COUNT 11.7 10^3/uL (4.0-10.0)
== END ==
LOC: M PLALAB 10:26
PROVIDERS: ATTEND Advanced Practice Midwife
DX: R30.0 Dysuria (principal)

== ENCOUNTER → 2021-09-07 | Outpatient (CLI) | payer OTHER | LOC: M LAB 07:09 | PROVIDERS: ATTEND Advanced Practice Midwife | DX: O99.810 Abnormal glucose complicating pregnancy (principal); Z3A.00 Weeks of gestation of pregnancy not specified ==

== ENCOUNTER → 2021-10-23 | Outpatient (REF) | payer OTHER | LOC: M PLALAB 11:12 | PROVIDERS: ATTEND Advanced Practice Midwife | DX: Z36.85 Encounter for antenatal screening for Streptococcus B (principal); Z3A.00 Weeks of gestation of pregnancy not specified ==

== ENCOUNTER 2021-10-25 19:07 | Outpatient (CLI) | payer OTHER ==
[~2021-10-25] VITALS: Ht 162.6 cm; Wt 97.9 kg
== END 2021-10-25 21:08 | disposition home or self-care (01) ==
LOC: M LDO 19:07
PROVIDERS: ATTEND Obstetrics & Gynecology
DX: O26.893 Other specified pregnancy related conditions, third trimester (principal); R06.02 Shortness of breath; R51.9 Headache, unspecified; Z3A.36 36 weeks gestation of pregnancy
CPT/HCPCS: 59025; G0378; G0463

== ENCOUNTER → 2022-09-23 | Outpatient (CLI) | payer OTHER ==
[~2022-09-23] MED LIST changes: +IBUP80TA PO
[2022-09-23 13:53] LABS: HEMATOCRIT 37.6 % (36.0-47.0); HEMOGLOBIN 11.9 g/dl (12.0-15.5); MEAN CORPUSCULAR HEMOGLOBIN 26.2 pg (27.0-33.0); MEAN CORPUSCULAR HGB CONC 31.6 g/dl (32.0-36.5); MEAN CORPUSCULAR VOLUME 82.8 fl (80.0-96.0); PLATELET COUNT, AUTOMATED 300 10^3/uL (150-450); RED BLOOD COUNT 4.54 10^6/uL (4.00-5.40); WHITE BLOOD COUNT 8.6 10^3/uL (4.0-10.0)
[2022-09-23 15:16] LABS: GC DNA AMPLIFICATION NEGATIVE (NEGATIVE)
[2022-09-23 19:32] LABS: HEPATITIS C VIRUS ABY INDEX < 0.0 INDEX (<0.8)
[2022-09-23 19:37] LABS: HIV 1&2 SCREEN CENTAUR NEGATIVE (NEGATIVE)
== END ==
LOC: M PLALAB 09:01
PROVIDERS: ATTEND Specialist
DX: Z34.81 Encounter for supervision of other normal pregnancy, first trimester (principal)

== ENCOUNTER 2022-10-26 08:15 | Emergency (ER) | payer OTHER ==
[~2022-10-26] VITALS: Ht 162.6 cm; Wt 89.9 kg
[2022-10-26 09:27] LABS: BASO % 0.4 % (0.0-1.0); EOS # 0.1 10^3/uL (0.0-0.5); HEMATOCRIT 37.5 % (36.0-47.0); HEMOGLOBIN 12.3 g/dl (12.0-15.5); LYMPH # 2.5 10^3/uL (1.5-5.0); LYMPH % 35.1 % (24.0-44.0); MEAN CORPUSCULAR HEMOGLOBIN 27.2 pg (27.0-33.0); MEAN CORPUSCULAR HGB CONC 32.8 g/dl (32.0-36.5); MONO # 0.6 10^3/uL (0.0-0.8); MONO % 8.2 % (2.0-8.0); NEUTROPHILS # 3.9 10^3/uL (1.5-8.5); PLATELET COUNT, AUTOMATED 245 10^3/uL (150-450); RED BLOOD COUNT 4.52 10^6/uL (4.00-5.40); WHITE BLOOD COUNT 7.1 10^3/uL (4.0-10.0)
[2022-10-26 09:48] LABS: BLOOD UREA NITROGEN 10 MG/DL (9-23); CALCIUM LEVEL 9.1 MG/DL (8.5-10.1); CARBON DIOXIDE LEVEL 25 MMOL/L (20-31); CHLORIDE LEVEL 105 MMOL/L (98-107); CREATININE FOR GFR 0.51 MG/DL (0.55-1.30); GLOMERULAR FILTRATION RATE > 60.0 (>60); GLUCOSE, FASTING 86 MG/DL (60-100); MAGNESIUM LEVEL 1.7 MG/DL (1.8-2.4); POTASSIUM SERUM 3.9 MMOL/L (3.5-5.1); SODIUM LEVEL 137 MMOL/L (136-145)
[2022-10-26 09:50] LABS: FREE T4 0.96 NG/DL (0.89-1.76); THYROID STIMULATING HORMONE 0.989 uIU/ML (0.55-4.78)
[2022-10-26] MEDS ORDERED: METOCLOPRAMIDE INJ 10MG/2ML VIAL IV ONE (10:50)
[2022-10-26] MEDS ORDERED: MAG SULF 1GM/100ML (MAG RUN) 1 GM in IV 1 EA IV ONE (11:00)
[2022-10-26] MEDS ORDERED: NS 1,000 ML IV ONE (11:35)
[2022-10-26] MEDS ORDERED: REGL10TA6 PO (13:25)
[2022-10-26] MEDS ORDERED: ONDA4TAB6 PO (13:25)
[2022-10-26] MEDS ORDERED: MAGN400T2 PO (13:35)
[2022-10-26 14:28] VITALS: BP 126/60
== END 2022-10-26 14:34 | disposition home or self-care (01) ==
LOC: M ED 08:15
DX: O21.0 Mild hyperemesis gravidarum (principal); O99.281 Endocrine, nutritional and metabolic diseases complicating pregnancy, first trimester; E83.42 Hypomagnesemia; Z3A.13 13 weeks gestation of pregnancy
CPT/HCPCS: 76801; 80048; 81001; 83605; 83735; 84439; 84443; 85025; 87486; 87581; 87633; 87798; 93005; 93041; 94760; 96365; 96375; 99285; J2765; J3475

== ENCOUNTER 2022-11-14 17:46 | Observation (INO) | payer OTHER ==
[~2022-11-14 17:46] MED LIST changes: +CEPH500C PO; +MAGN400T2 PO; +MECL-86 PO; +METO10TA2 PO; +OMEP-173 PO; +OMEP40CA4 PO; +PROM25TA12 PR; +REGL10TA6 PO; +SUCR1TA PO; +ZOLO100T PO; +[UNRECOGNIZED DRUG - CODE] PO
[2022-11-14] MEDS ORDERED: LR 1,000 ML IV ONE (20:40)
[2022-11-14] MEDS ORDERED: PROMETHAZINE 25MG/ML 1ML VIAL IV PRN (20:40)
[2022-11-14 21:20] VITALS: BP 98/54
[2022-11-14 22:39] LABS: BASO % 0.1 % (0.0-1.0); EOS # 0.1 10^3/uL (0.0-0.5); EOS % 1.2 % (0.0-3.0); HEMATOCRIT 32.1 % (36.0-47.0); HEMOGLOBIN 10.8 g/dl (12.0-15.5); MEAN CORPUSCULAR HEMOGLOBIN 26.9 pg (27.0-33.0); MEAN CORPUSCULAR HGB CONC 33.6 g/dl (32.0-36.5); MEAN CORPUSCULAR VOLUME 79.9 fl (80.0-96.0); MONO # 0.9 10^3/uL (0.0-0.8); MONO % 10.2 % (2.0-8.0); NEUTROPHILS # 4.4 10^3/uL (1.5-8.5); NEUTROPHILS % 52.3 % (36.0-66.0); PLATELET COUNT, AUTOMATED 227 10^3/uL (150-450); RED BLOOD COUNT 4.02 10^6/uL (4.00-5.40); WHITE BLOOD COUNT 8.3 10^3/uL (4.0-10.0)
[2022-11-14 23:04] LABS: ALBUMIN 3.2 G/DL (3.2-5.2); ALKALINE PHOSPHATASE 58 U/L (46-116); ALT/SGPT 21 U/L (7.0-40); AST/SGOT 13 U/L (<34); BILIRUBIN,TOTAL 0.3 MG/DL (0.3-1.2); BLOOD UREA NITROGEN 6 MG/DL (9-23); CALCIUM LEVEL 8.8 MG/DL (8.5-10.1); CARBON DIOXIDE LEVEL 23 MMOL/L (20-31); CHLORIDE LEVEL 105 MMOL/L (98-107); CREATININE FOR GFR 0.41 MG/DL (0.55-1.30); GLOMERULAR FILTRATION RATE > 60.0 (>60); GLUCOSE, FASTING 85 MG/DL (60-100); POTASSIUM SERUM 3.7 MMOL/L (3.5-5.1); SODIUM LEVEL 138 MMOL/L (136-145); TOTAL PROTEIN 6.2 G/DL (5.7-8.2)
[2022-11-14] MEDS: LR 1,000 ML IV SCH (23:23)
[2022-11-15 05:48] VITALS: BP 97/52
[2022-11-15] MEDS: LR 1,000 ML IV SCH ×3 (06:40→20:40)
[2022-11-15] MEDS ORDERED: PROMETHAZINE 25MG SUPP PR PRN (09:00)
[2022-11-15 18:00] VITALS: BP 90/54
[2022-11-15] MEDS ORDERED: SERTRALINE 100 MG TAB PO SCH (21:30)
[2022-11-15] MEDS: OMEPRAZOLE 20MG CAP PO SCH (21:44)
[2022-11-16 06:00] VITALS: BP 91/55
[2022-11-16] MEDS: OMEPRAZOLE 20MG CAP PO SCH (08:20)
[2022-11-16 09:59] VITALS: BP 98/59
== END 2022-11-16 12:00 | disposition home or self-care (01) ==
LOC: M OBS 20:12
PROVIDERS: ADMIT Obstetrics & Gynecology; ATTEND Obstetrics & Gynecology
DX: O21.0 Mild hyperemesis gravidarum (principal); O26.892 Other specified pregnancy related conditions, second trimester; R10.13 Epigastric pain; Z3A.15 15 weeks gestation of pregnancy; Z79.899 Other long term (current) drug therapy; Z88.0 Allergy status to penicillin
CPT/HCPCS: 74181; 80053; 85025; 96361; 96374; J2550

== ENCOUNTER → 2022-12-13 | Outpatient (CLI) | payer OTHER | LOC: M WHC 06:50 | PROVIDERS: ATTEND Obstetrics & Gynecology | DX: Z34.92 Encounter for supervision of normal pregnancy, unspecified, second trimester (principal); Z3A.19 19 weeks gestation of pregnancy ==

== ENCOUNTER → 2023-01-02 | Outpatient (CLI) | payer OTHER | LOC: M WHC 09:34 | PROVIDERS: ATTEND Obstetrics & Gynecology | DX: O36.5990 Maternal care for other known or suspected poor fetal growth, unspecified trimester, not applicable or unspecified (principal); Z3A.22 22 weeks gestation of pregnancy ==

== ENCOUNTER → 2023-02-11 | Outpatient (CLI) | payer OTHER ==
[2023-02-11 15:51] LABS: HEMATOCRIT 32.1 % (36.0-47.0); HEMOGLOBIN 10.1 g/dl (12.0-15.5); MEAN CORPUSCULAR HEMOGLOBIN 26.9 pg (27.0-33.0); MEAN CORPUSCULAR HGB CONC 31.5 g/dl (32.0-36.5); MEAN CORPUSCULAR VOLUME 85.4 fl (80.0-96.0); PLATELET COUNT, AUTOMATED 238 10^3/uL (150-450); RED BLOOD COUNT 3.76 10^6/uL (4.00-5.40)
== END ==
LOC: M PLALAB 11:24
PROVIDERS: ATTEND Obstetrics & Gynecology
DX: Z34.92 Encounter for supervision of normal pregnancy, unspecified, second trimester (principal)

== ENCOUNTER → 2023-02-20 | Outpatient (CLI) | payer OTHER | LOC: M WHC 15:12 | PROVIDERS: ATTEND Obstetrics & Gynecology | DX: O36.5920 Maternal care for other known or suspected poor fetal growth, second trimester, not applicable or unspecified (principal); Z3A.29 29 weeks gestation of pregnancy ==

== ENCOUNTER → 2023-04-09 | Outpatient (REF) | payer OTHER ==
[~2023-04-09] MED LIST changes: +ACET-897 PO
== END ==
LOC: M PLALAB 10:31
PROVIDERS: ATTEND Advanced Practice Midwife
DX: Z36.85 Encounter for antenatal screening for Streptococcus B (principal)

== ENCOUNTER 2023-04-18 04:36 | Outpatient (CLI) | payer OTHER ==
[~2023-04-18] VITALS: Ht 160 cm; Wt 93.6 kg
[2023-04-18 04:51] VITALS: BP 117/58
[2023-04-18 05:30] VITALS: BP 110/72
== END 2023-04-18 06:07 | disposition home or self-care (01) ==
LOC: M LDO 04:36
PROVIDERS: ATTEND Obstetrics & Gynecology
DX: O36.8130 Decreased fetal movements, third trimester, not applicable or unspecified (principal); Z3A.37 37 weeks gestation of pregnancy; Z88.0 Allergy status to penicillin
CPT/HCPCS: 59025; 76815; G0463

== ENCOUNTER 2023-04-28 15:05 | Inpatient (IN) | payer OTHER ==
[~2023-04-28] VITALS: Ht 162.6 cm; Wt 94.5 kg
[2023-04-28] VITALS (8 sets, daily range): BP systolic 109–135; BP diastolic 60–90
[2023-04-28] MEDS ORDERED: HOME MED LIST COMPLETE! XX SCH (15:40)
[2023-04-28] MEDS ORDERED: LACTATED RINGER'S 1000 ML IV STA (16:15)
[2023-04-28] MEDS ORDERED: OXYTOCIN INJ 10UNITS/ML 1ML VIAL IM PRN (16:15)
[2023-04-28] MEDS ORDERED: METHYLERGONOVINE MALEATE 0.2MG/ML 1ML VIAL IM PRN (16:15)
[2023-04-28] MEDS ORDERED: CARBOPROST TROMETHAMINE 250 MCG/ML AMP IM PRN (16:15)
[2023-04-28] MEDS ORDERED: OXYTOCIN DRIP 30 UNITS in IV 1 EA IV PRN (16:15)
[2023-04-28] MEDS ORDERED: LIDOCAINE 1% MDV 20ML VIAL INFIL PRN (16:15)
[2023-04-28] MEDS ORDERED: TRANEXAMIC ACID INJection 1,000 MG in NS 100 ML IV PRN (16:15)
[2023-04-28 17:09] LABS: HEMATOCRIT 33.4 % (36.0-47.0); HEMOGLOBIN 11.3 g/dl (12.0-15.5); MEAN CORPUSCULAR HEMOGLOBIN 27.5 pg (27.0-33.0); MEAN CORPUSCULAR HGB CONC 33.8 g/dl (32.0-36.5); MEAN CORPUSCULAR VOLUME 81.3 fl (80.0-96.0); PLATELET COUNT, AUTOMATED 236 10^3/uL (150-450); RED BLOOD COUNT 4.11 10^6/uL (4.00-5.40); WHITE BLOOD COUNT 10.8 10^3/uL (4.0-10.0)
[2023-04-28] MEDS ORDERED: OXYTOCIN DRIP 30 UNITS in IV 1 EA IV SCH (23:05)
[2023-04-29] VITALS (31 sets, daily range): BP systolic 89–168; BP diastolic 53–94; O2SAT 97
[2023-04-29] MEDS: LR 1,000 ML IV SCH ×2 (03:24→06:03)
[2023-04-29] MEDS ORDERED: ePHEDrine SULFATE 25 MG/5 ML(5MG/ML) SYRINGE IVP PRN (05:55)
[2023-04-29] MEDS ORDERED: EPIDURAL/PCA KEYS XX PRN (05:55)
[2023-04-29] MEDS ORDERED: FENTANYL/ROPIVACAINE/NACL BAG 100 ML EPIDURAL SCH (05:55)
[2023-04-29] MEDS ORDERED: NALOXONE INJ 0.4MG/1ML VIAL IV PRN (05:55)
[2023-04-29] MEDS ORDERED: LR 500 ML IV PRN (05:55)
[2023-04-29] MEDS ORDERED: ONDANSETRON 4MG 2ML VIAL IV PRN (05:55)
[2023-04-29] MEDS ORDERED: diphenhydrAMINE 50MG/ML VIAL IV PRN (05:55)
[2023-04-29] MEDS ORDERED: SERTRALINE 100 MG TAB PO SCH (08:00)
[2023-04-29 08:22] LABS: CORD GAS ABE A -3.6; CORD GAS HCO3 A 19.8 MMOL/L; CORD GAS O2 SAT A 83.5 %; CORD GAS PCO2 A 32.1 mmHg; CORD GAS PH A 7.409 UNITS; CORD GAS PO2 A 36.5 mmHg; CORD GAS SBC A 21.1 MMOL/L; CORD GAS TCO2 A 20.8 MMOL/L
[2023-04-29 08:24] LABS: CORD GAS ABE V -3.2; CORD GAS HCO3 V 20.2 MMOL/L; CORD GAS O2 SAT V 85.7 %; CORD GAS PCO2 V 32.2 mmHg; CORD GAS PH V 7.416 UNITS; CORD GAS PO2 V 38.4 mmHg; CORD GAS SBC V 21.6 MMOL/L; CORD GAS TCO2 V 21.2 MMOL/L
[2023-04-29] MEDS ORDERED: ACETAMINOPHEN TAB 650MG DOSE (2X325MG) PO PRN (08:40)
[2023-04-29] MEDS ORDERED: DOCUSATE SODIUM 100MG CAPSULE PO PRN (08:40)
[2023-04-29] MEDS ORDERED: IBUPROFEN 600MG TAB PO PRN (08:40)
[2023-04-29] MEDS ORDERED: RHOGAM 300MCG (1500IU) INJ IM SCH (08:40)
[2023-04-29] MEDS ORDERED: METHYLERGONOVINE MALEATE 0.2 MG TAB PO PRN (08:40)
[2023-04-29] MEDS ORDERED: DIBUCAINE 1% OINTMENT 30GM TOP PRN (08:40)
[2023-04-29] MEDS: PRENATAL VITAMINS CHEWABLE TABLET PO SCH (09:00)
[2023-04-29] MEDS: IBUPROFEN 800 MG TAB PO PRN (19:46)
[2023-04-30 06:00] VITALS: BP 102/59; O2SAT 97
[2023-04-30] MEDS: SERTRALINE 100 MG TAB PO SCH (08:11)
[2023-04-30] MEDS: ACETAMINOPHEN 500 MG TAB PO PRN ×2 (08:11→23:51)
[2023-04-30] MEDS: PRENATAL VITAMINS CHEWABLE TABLET PO SCH (08:11)
[2023-04-30 18:00] VITALS: BP 136/70; O2SAT 96
[2023-04-30] MEDS: IBUPROFEN 800 MG TAB PO PRN (20:30)
[2023-05-01 06:00] VITALS: BP 114/59; O2SAT 99
[2023-05-01] MEDS: SERTRALINE 100 MG TAB PO SCH (08:41)
[2023-05-01] MEDS: PRENATAL VITAMINS CHEWABLE TABLET PO SCH (08:41)
[2023-05-01] MEDS ORDERED: MEASLES,MUMPS,RUBELLA VACCINE INJ (MMR-II) SC.IMMUN ONE (09:00)
== END 2023-05-01 12:50 | disposition home or self-care (01) | DRG 807 ==
LOC: M LDO 15:05 → M LDI 16:15 → M OBS 04-29 10:18
PROVIDERS: ADMIT Advanced Practice Midwife; ATTEND Specialist
PROC: 10E0XZZ Delivery of Products of Conception, External Approach (ICD-10-PCS; principal; 2023-04-29)
DX: O99.344 Other mental disorders complicating childbirth (principal); Z37.0 Single live birth; Z3A.39 39 weeks gestation of pregnancy; F41.9 Anxiety disorder, unspecified; F32.A Depression, unspecified; Z88.0 Allergy status to penicillin; Z79.899 Other long term (current) drug therapy; O77.0 Labor and delivery complicated by meconium in amniotic fluid; O69.81X0 Labor and delivery complicated by cord around neck, without compression, not applicable or unspecified

== ENCOUNTER → 2023-07-08 | Outpatient (REF) | payer OTHER | LOC: M SFHCWAGY 13:27 | PROVIDERS: ATTEND Specialist | DX: Z12.4 Encounter for screening for malignant neoplasm of cervix (principal) | CPT/HCPCS: 87624; G0123 ==

== ENCOUNTER → 2023-09-16 | Outpatient (REF) | payer OTHER | LOC: M LAB REF 16:23 | PROVIDERS: ATTEND Nurse Practitioner Family | DX: R30.0 Dysuria (principal) ==

== ENCOUNTER 2024-01-15 09:22 | Day surgery (SDC) | payer OTHER ==
[~2024-01-15] VITALS: Ht 162.6 cm; Wt 87.3 kg
[~2024-01-15 09:22] MED LIST changes: +LIDOCAINE 2% 100MG/5ML SDV (FOR ANES.) As Ordered ONE; +ONDA-282 PO; -ONDA4TAB6 PO; +fentaNYL 100 MCG/2 ML INJECTION As Ordered ONE; +propofoL 200 MG/20 ML VIAL As Ordered ONE; +propofoL 500 MG/50 ML VIAL As Ordered ONE
[2024-01-15] MEDS: NS 1,000 ML IV ONE (09:42)
[2024-01-15] MEDS ORDERED: ePHEDrine SULFATE 25 MG/5 ML(5MG/ML) SYRINGE As Ordered ONE (10:41)
[2024-01-15 11:00] VITALS: TEMP 97.3
[2024-01-15 11:32] VITALS: BP 114/75; O2SAT 100
== END 2024-01-15 11:33 | disposition home or self-care (01) ==
LOC: M OPP 09:22
PROVIDERS: ATTEND Internal Medicine Gastroenterology
DX: Z12.11 Encounter for screening for malignant neoplasm of colon (principal); Z80.0 Family history of malignant neoplasm of digestive organs; K57.30 Diverticulosis of large intestine without perforation or abscess without bleeding; K62.5 Hemorrhage of anus and rectum; K22.89 Other specified disease of esophagus; K21.00 Gastro-esophageal reflux disease with esophagitis, without bleeding; R13.14 Dysphagia, pharyngoesophageal phase
CPT/HCPCS: 43239; 45378; 88305; J3010

== ENCOUNTER → 2024-03-19 | Outpatient (REF) | payer OTHER ==
[~2024-03-19] MED LIST changes: -LIDOCAINE 2% 100MG/5ML SDV (FOR ANES.) As Ordered ONE; -fentaNYL 100 MCG/2 ML INJECTION As Ordered ONE; -propofoL 200 MG/20 ML VIAL As Ordered ONE; -propofoL 500 MG/50 ML VIAL As Ordered ONE
== END ==
LOC: M LAB REF 11:08
PROVIDERS: ATTEND Physician Assistant
DX: R30.0 Dysuria (principal)

== ENCOUNTER → 2024-04-06 | Outpatient (CLI) | payer OTHER ==
[2024-04-06 16:50] LABS: BASO % 0.4 % (0.0-1.0); EOS # 0.2 10^3/uL (0.0-0.5); EOS % 2.1 % (0.0-3.0); HEMATOCRIT 38.3 % (36.0-47.0); LYMPH # 3.7 10^3/uL (1.5-5.0); LYMPH % 34.6 % (24.0-44.0); MEAN CORPUSCULAR HEMOGLOBIN 25.8 pg (27.0-33.0); MEAN CORPUSCULAR HGB CONC 31.3 g/dl (32.0-36.5); MEAN CORPUSCULAR VOLUME 82.4 fl (80.0-96.0); MONO # 0.9 10^3/uL (0.0-0.8); MONO % 8.3 % (2.0-8.0); NEUTROPHILS # 5.8 10^3/uL (1.5-8.5); NEUTROPHILS % 54.3 % (36.0-66.0); PLATELET COUNT, AUTOMATED 275 10^3/uL (150-450); RED BLOOD COUNT 4.65 10^6/uL (4.00-5.40); WHITE BLOOD COUNT 10.7 10^3/uL (4.0-10.0)
[2024-04-06 17:17] LABS: ALBUMIN 3.7 G/DL (3.2-5.2); ALKALINE PHOSPHATASE 81 U/L (46-116); ALT/SGPT 13 U/L (7.0-40); AST/SGOT 9 U/L (<34); BILIRUBIN,TOTAL 0.3 MG/DL (0.3-1.2); BLOOD UREA NITROGEN 17 MG/DL (9-23); CALCIUM LEVEL 9.9 MG/DL (8.5-10.1); CARBON DIOXIDE LEVEL 28 MMOL/L (20-31); CHLORIDE LEVEL 107 MMOL/L (98-107); CREATININE FOR GFR 0.66 MG/DL (0.55-1.30); GLOMERULAR FILTRATION RATE > 60.0 (>60); GLUCOSE, FASTING 95 MG/DL (60-100); POTASSIUM SERUM 4.6 MMOL/L (3.5-5.1); SODIUM LEVEL 139 MMOL/L (136-145); TOTAL PROTEIN 7.2 G/DL (5.7-8.2)
[2024-04-06 17:19] LABS: THYROID STIMULATING HORMONE 1.136 uIU/ML (0.55-4.78)
[2024-04-06 17:31] LABS: HEPATITIS B SURFACE ANTIGEN NEGATIVE (NEGATIVE)
[2024-04-06 17:51] LABS: HEPATITIS B CORE ANTIBODY IGM NEGATIVE (NEGATIVE); HEPATITIS C VIRUS ABY INDEX < 0.02 INDEX (<0.8)
== END ==
LOC: M WUC 14:53
PROVIDERS: ATTEND Nurse Practitioner Family
DX: L30.8 Other specified dermatitis (principal)

== ENCOUNTER → 2024-05-10 | Outpatient (REF) | payer OTHER | LOC: M LAB REF 12:33 | PROVIDERS: ATTEND Physician Assistant | DX: R30.0 Dysuria (principal) ==

== ENCOUNTER → 2024-07-30 | Outpatient (CLI) | payer OTHER ==
[2024-07-30 18:23] LABS: HEMATOCRIT 36.2 % (36.0-47.0); HEMOGLOBIN 11.6 g/dl (12.0-15.5); MEAN CORPUSCULAR HEMOGLOBIN 25.6 pg (27.0-33.0); MEAN CORPUSCULAR VOLUME 79.9 fl (80.0-96.0); PLATELET COUNT, AUTOMATED 270 10^3/uL (150-450); RED BLOOD COUNT 4.53 10^6/uL (4.00-5.40); WHITE BLOOD COUNT 9.7 10^3/uL (4.0-10.0)
[2024-07-30 19:13] LABS: HIV 1&2 SCREEN NEGATIVE (NEGATIVE)
[2024-07-30 19:22] LABS: HEPATITIS C VIRUS ABY INDEX 0.12 INDEX (<0.8)
[2024-07-30 19:24] LABS: Trichomonas vaginalis (AMP) NOT DETECTED (NEGATIVE)
[2024-07-30 19:48] LABS: GC DNA AMPLIFICATION NEGATIVE (NEGATIVE)
== END ==
LOC: M PLALAB 14:23
PROVIDERS: ATTEND Advanced Practice Midwife
DX: Z34.81 Encounter for supervision of other normal pregnancy, first trimester (principal)

== ENCOUNTER → 2024-07-30 | Outpatient (CLI) | payer OTHER ==
[2024-08-03 14:43] LABS: LYME TOTAL ANTIBODY CIA <= 0.90 Index (<=0.90)
[2024-08-05 17:52] LABS: NICOTINAMIDE < 20 ng/mL (see note); NICOTINIC ACID < 20 ng/mL (see note)
== END ==
LOC: M PLALAB 14:27
PROVIDERS: ATTEND Nurse Practitioner Family
DX: R21 Rash and other nonspecific skin eruption (principal)

== ENCOUNTER → 2024-08-27 | Outpatient (REF) | payer OTHER | LOC: M SFHCWAGY 17:29 | PROVIDERS: ATTEND Advanced Practice Midwife | DX: Z34.82 Encounter for supervision of other normal pregnancy, second trimester (principal) ==

== ENCOUNTER → 2024-09-20 | Outpatient (CLI) | payer OTHER | LOC: M RAD 12:30 | PROVIDERS: ATTEND Advanced Practice Midwife | DX: Z34.82 Encounter for supervision of other normal pregnancy, second trimester (principal) ==

== ENCOUNTER 2024-10-03 15:07 | Emergency (ER) | payer OTHER ==
[2024-10-03] MEDS ORDERED: GNP250TA9 PO (15:39)
[2024-10-03] MEDS ORDERED: SUCRALFATE SUSP 1GM/10ML UD PO ONE (17:05)
[2024-10-03] MEDS ORDERED: OMEP40CA4 PO (20:30)
[2024-10-03] MEDS ORDERED: SUCR1ORA PO (20:30)
== END 2024-10-03 15:12 | disposition admitted as inpatient to this hospital (09) ==
LOC: M ED 15:07
DX: Z53.21 Procedure and treatment not carried out due to patient leaving prior to being seen by health care provider (principal)

== ENCOUNTER 2024-10-03 15:15 | Outpatient (CLI) | payer OTHER ==
[~2024-10-03] VITALS: Ht 162.6 cm; Wt 95.3 kg
[2024-10-03 15:32] VITALS: BP 111/65
[2024-10-03] MEDS ORDERED: GNP250TA9 PO (15:39)
[2024-10-03] MEDS ORDERED: HOME MED LIST COMPLETE! XX SCH (15:40)
[2024-10-03] MEDS: OMEPRAZOLE 20MG CAP PO ONE (16:23)
[2024-10-03 17:06] LABS: HEMATOCRIT 32.7 % (36.0-47.0); HEMOGLOBIN 10.7 g/dl (12.0-15.5); MEAN CORPUSCULAR HEMOGLOBIN 26.8 pg (27.0-33.0); MEAN CORPUSCULAR HGB CONC 32.7 g/dl (32.0-36.5); MEAN CORPUSCULAR VOLUME 81.8 fl (80.0-96.0); PLATELET COUNT, AUTOMATED 193 10^3/uL (150-450); WHITE BLOOD COUNT 5.9 10^3/uL (4.0-10.0)
[2024-10-03] MEDS: SUCRALFATE SUSP 1GM/10ML UD PO ONE (17:26)
[2024-10-03 17:29] LABS: LIPASE 28 U/L (12-53)
[2024-10-03 17:31] LABS: ALBUMIN 2.7 G/DL (3.2-5.2); ALKALINE PHOSPHATASE 66 U/L (35-104); ALT/SGPT 15 U/L (7.0-40); AST/SGOT 13 U/L (<34); BILIRUBIN,TOTAL 0.3 MG/DL (0.3-1.2); BLOOD UREA NITROGEN 9 MG/DL (9-23); CARBON DIOXIDE LEVEL 24 MMOL/L (20-31); CHLORIDE LEVEL 104 MMOL/L (98-107); CREATININE FOR GFR 0.45 MG/DL (0.55-1.30); GLOMERULAR FILTRATION RATE > 90.0 (>60); GLUCOSE, FASTING 105 MG/DL (60-100); POTASSIUM SERUM 4.1 MMOL/L (3.5-5.1); SODIUM LEVEL 136 MMOL/L (136-145); TOTAL PROTEIN 6.1 G/DL (5.7-8.2)
[2024-10-03 17:46] LABS: APPEARANCE, URINE HAZY (CLEAR); BACTERIA, URINE AUTO 2+ (NEGATIVE); BILIRUBIN, URINE AUTO NEGATIVE (NEGATIVE); BLOOD, URINE BLOOD 1+ (NEGATIVE); COLOR, URINE YELLOW (YELLOW); GLUCOSE, URINE (UA) AUTO NEGATIVE (NEGATIVE); KETONE, URINE AUTO NEGATIVE (NEGATIVE); LEUKOCYTE ESTERASE, URINE AUTO NEGATIVE (NEGATIVE); MUCUS, URINE SMALL (NEGATIVE); NITRITE, URINE AUTO NEGATIVE (NEGATIVE); PROTEIN, URINE AUTO NEGATIVE (NEGATIVE); RBC, URINE AUTO 4 /HPF (0-3); SQUAMOUS EPITHELIAL CELL UR AU 5 /HPF (0-6); WBC, URINE AUTO 1 /HPF (0-3)
[2024-10-03] MEDS ORDERED: OMEP40CA4 PO (20:30)
[2024-10-03] MEDS ORDERED: SUCR1ORA PO (20:30)
== END 2024-10-03 18:23 | disposition home or self-care (01) ==
LOC: M LDO 15:15
PROVIDERS: ATTEND Specialist
DX: O26.892 Other specified pregnancy related conditions, second trimester (principal); O99.342 Other mental disorders complicating pregnancy, second trimester; R10.13 Epigastric pain; F41.1 Generalized anxiety disorder; Z3A.21 21 weeks gestation of pregnancy
CPT/HCPCS: 36415; 80053; 81001; 83690; 85027; G0463

== ENCOUNTER 2024-10-04 20:28 | Outpatient (CLI) | payer OTHER ==
[~2024-10-04 20:28] MED LIST changes: +GNP250TA9 PO; +SUCR1ORA PO
[2024-10-04 20:40] VITALS: BP 121/75
[2024-10-04] MEDS ORDERED: HOME MED LIST COMPLETE! XX SCH (20:45)
[2024-10-04] MEDS: ONDANSETRON 4MG 2ML VIAL IV ONE (21:52)
[2024-10-04] MEDS: LR 1,000 ML IV ONE (21:52)
[2024-10-04] MEDS: PANTOPRAZOLE SODIUM 40 MG in D5W 50 ML IV SCH (21:52)
[2024-10-04 22:31] LABS: LIPASE 35 U/L (12-53)
[2024-10-04 22:32] LABS: AMYLASE 41 U/L (30-118)
[2024-10-04 22:33] LABS: ALBUMIN 2.6 G/DL (3.2-5.2); ALKALINE PHOSPHATASE 68 U/L (35-104); ALT/SGPT 12 U/L (7.0-40); AST/SGOT 13 U/L (<34); BILIRUBIN,TOTAL 0.2 MG/DL (0.3-1.2); BLOOD UREA NITROGEN 8 MG/DL (9-23); CALCIUM LEVEL 8.1 MG/DL (8.5-10.1); CARBON DIOXIDE LEVEL 21 MMOL/L (20-31); CHLORIDE LEVEL 108 MMOL/L (98-107); GLOMERULAR FILTRATION RATE > 90.0 (>60); GLUCOSE, FASTING 87 MG/DL (60-100); POTASSIUM SERUM 3.3 MMOL/L (3.5-5.1); SODIUM LEVEL 140 MMOL/L (136-145)
[2024-10-05 00:32] VITALS: BP 101/60
[2024-10-05] MEDS: MAALOX 30 ML SUSP *UDC PO ONE (01:35)
[2024-10-05] MEDS: KCL 10MEQ/100ML SWI (KRUN) 10 MEQ in IV 1 EA IV ONE (02:02)
[2024-10-05 03:26] VITALS: BP 138/56
== END 2024-10-05 03:56 | disposition home or self-care (01) ==
LOC: M LDO 20:28
PROVIDERS: ATTEND Advanced Practice Midwife
DX: O99.612 Diseases of the digestive system complicating pregnancy, second trimester (principal); O99.282 Endocrine, nutritional and metabolic diseases complicating pregnancy, second trimester; O99.342 Other mental disorders complicating pregnancy, second trimester; O26.892 Other specified pregnancy related conditions, second trimester; F41.9 Anxiety disorder, unspecified; E87.6 Hypokalemia; R07.89 Other chest pain; K21.9 Gastro-esophageal reflux disease without esophagitis; Z3A.21 21 weeks gestation of pregnancy
CPT/HCPCS: 80053; 82150; 83690; 93005; 96374; G0463; J2405; J2470

== ENCOUNTER → 2024-10-26 | Outpatient (CLI) | payer OTHER ==
[2024-10-26 15:11] LABS: HEMATOCRIT 31.6 % (36.0-47.0); HEMOGLOBIN 10.1 g/dl (12.0-15.5); MEAN CORPUSCULAR VOLUME 84.5 fl (80.0-96.0); PLATELET COUNT, AUTOMATED 227 10^3/uL (150-450); RED BLOOD COUNT 3.74 10^6/uL (4.00-5.40)
[2024-10-26 16:02] LABS: GLUCOSE CHALLENGE TEST 1 HOUR 97 MG/DL (LESS THAN 140)
[2024-10-26 16:15] LABS: Trichomonas vaginalis (AMP) NOT DETECTED (NEGATIVE)
[2024-10-26 16:24] LABS: HEPATITIS C VIRUS ABY INDEX < 0.02 INDEX (<0.8)
[2024-10-26 16:35] LABS: HIV 1&2 SCREEN NEGATIVE (NEGATIVE)
[2024-10-26 16:38] LABS: GC DNA AMPLIFICATION NEGATIVE (NEGATIVE)
== END ==
LOC: M PLALAB 12:18
PROVIDERS: ATTEND Obstetrics & Gynecology
DX: Z34.92 Encounter for supervision of normal pregnancy, unspecified, second trimester (principal)

== ENCOUNTER → 2025-01-13 | Outpatient (REF) | payer OTHER | LOC: M PLALAB 09:05 | PROVIDERS: ATTEND Advanced Practice Midwife | DX: Z34.03 Encounter for supervision of normal first pregnancy, third trimester (principal); Z3A.36 36 weeks gestation of pregnancy ==

== ENCOUNTER 2025-02-01 21:30 | Outpatient (CLI) | payer OTHER ==
[~2025-02-01] VITALS: Ht 162.6 cm; Wt 97.8 kg
[2025-02-01 21:51] VITALS: BP 127/84
== END 2025-02-01 22:30 | disposition home or self-care (01) ==
LOC: M LDO 21:30
PROVIDERS: ATTEND Specialist
DX: O36.8130 Decreased fetal movements, third trimester, not applicable or unspecified (principal); Z3A.39 39 weeks gestation of pregnancy
CPT/HCPCS: 59025; G0463

== ENCOUNTER 2025-02-06 12:42 | Outpatient (CLI) | payer OTHER ==
[~2025-02-06] VITALS: Ht 162.6 cm; Wt 97.9 kg
[~2025-02-06 12:42] MED LIST changes: -IBUP-1022 PO; +IBUP600T42 PO
[2025-02-06 12:59] VITALS: BP 129/84
[2025-02-06] MEDS ORDERED: HOME MED LIST COMPLETE! XX SCH (13:05)
[2025-02-06 13:34] VITALS: BP 131/76
== END 2025-02-06 14:48 | disposition home or self-care (01) ==
LOC: M LDO 12:42
PROVIDERS: ATTEND Obstetrics & Gynecology
DX: O47.1 False labor at or after 37 completed weeks of gestation (principal); Z3A.39 39 weeks gestation of pregnancy
CPT/HCPCS: 59025; G0463

== ENCOUNTER 2025-02-14 06:05 | Inpatient (IN) | payer OTHER ==
[~2025-02-14] VITALS: Ht 162.6 cm; Wt 97.4 kg
[2025-02-14] VITALS (21 sets, daily range): BP systolic 115–145; BP diastolic 53–90; O2SAT 95
[2025-02-14] MEDS ORDERED: HOME MED LIST COMPLETE! XX SCH (07:10)
[2025-02-14] MEDS ORDERED: CARBOPROST TROMETHAMINE 250 MCG/ML AMP IM PRN (07:20)
[2025-02-14] MEDS ORDERED: OXYTOCIN DRIP 30 UNITS in IV 1 EA IV PRN (07:20)
[2025-02-14] MEDS ORDERED: TRANEXAMIC ACID INJection 1,000 MG in NS 100 ML IV PRN (07:20)
[2025-02-14] MEDS ORDERED: LIDOCAINE 1% MDV 20 ML VIAL INFIL PRN (07:20)
[2025-02-14] MEDS: miSOPROStol 50 MCG 1/2 TABLET PO ONE (08:04)
[2025-02-14 08:09] LABS: PLATELET COUNT, AUTOMATED 218 10^3/uL (150-450)
[2025-02-14 09:07] LABS: HIV 1&2 SCREEN NEGATIVE (NEGATIVE)
[2025-02-14 09:15] LABS: HEPATITIS C VIRUS ABY INDEX < 0.02 INDEX (<0.8)
[2025-02-14] MEDS: LACTATED RINGER'S 1000 ML IV STA (10:42)
[2025-02-14] MEDS: LR 1,000 ML IV SCH (11:51)
[2025-02-14] MEDS: OXYTOCIN DRIP 30 UNITS in IV 1 EA IV SCH (13:01)
[2025-02-14] MEDS ORDERED: FENTANYL 2 MCG/ML ROPIVACAINE 0.2% IN 0.9% NACL 100 ML IVBAG As Ordered ONE (13:59)
[2025-02-14] MEDS ORDERED: LR 500 ML IV PRN (14:00)
[2025-02-14] MEDS ORDERED: ONDANSETRON 4MG 2ML VIAL IV PRN (14:00)
[2025-02-14] MEDS ORDERED: diphenhydrAMINE 50 MG/ML VIAL IV PRN (14:00)
[2025-02-14] MEDS ORDERED: EPIDURAL/PCA KEYS XX PRN (14:00)
[2025-02-14] MEDS ORDERED: NALOXONE INJ 0.4 MG/1 ML VIAL IV PRN (14:00)
[2025-02-14] MEDS: FENTANYL/ROPIVACAINE/NACL BAG 100 ML EPIDURAL SCH (14:50)
[2025-02-14] MEDS: METHYLERGONOVINE MALEATE 0.2 MG/ML 1 ML VIAL IM PRN (15:52)
[2025-02-14] MEDS ORDERED: ACETAMINOPHEN 325 MG TAB PO PRN (15:55)
[2025-02-14] MEDS ORDERED: ANUSOL HC CREAM 30 GM TOP PRN (15:55)
[2025-02-14] MEDS ORDERED: DOCUSATE SODIUM 100 MG CAPSULE PO PRN (15:55)
[2025-02-14] MEDS ORDERED: IBUPROFEN 600 MG TAB PO PRN (15:55)
[2025-02-14] MEDS ORDERED: RHOGAM 300MCG (1500IU) INJ IM SCH (15:55)
[2025-02-14] MEDS ORDERED: MOM 30 ML SUSPENSION UDC PO PRN (15:55)
[2025-02-14] MEDS ORDERED: DIBUCAINE 1% OINTMENT 30 GM TOP PRN (15:55)
[2025-02-14] MEDS: IBUPROFEN 800 MG TAB PO PRN (20:10)
[2025-02-15 06:00] VITALS: BP 120/64
[2025-02-15] MEDS: PRENATAL VITAMINS CHEWABLE TABLET PO SCH (10:27)
[2025-02-15] MEDS: ACETAMINOPHEN 500 MG TAB PO PRN (16:41)
[2025-02-15 18:40] VITALS: BP 138/90; O2SAT 97
[2025-02-16 06:00] VITALS: BP 127/75; O2SAT 98
[2025-02-16] MEDS: MEASLES,MUMPS,RUBELLA VACCINE INJ (MMR-II) SC.IMMUN ONE (09:00)
[2025-02-16] MEDS: TETANUS/DIPHTH/ACEL. PERTUSSIS 0.5 ML SYR IM.IMMUN ONE (09:36)
== END 2025-02-16 12:42 | disposition home or self-care (01) | DRG 560 ==
LOC: M LDI 06:05 → M OBS 18:22
PROVIDERS: ADMIT Obstetrics & Gynecology; ATTEND Advanced Practice Midwife
PROC: 10E0XZZ Delivery of Products of Conception, External Approach (ICD-10-PCS; principal; 2025-02-14)
DX: O80 Encounter for full-term uncomplicated delivery (principal); Z37.0 Single live birth; Z3A.41 41 weeks gestation of pregnancy